=== PATIENT | female | born 1955 | race Hispanic/Latino ===

== ENCOUNTER 2017-04-21 00:27 | Observation (INO) | payer MEDICAID ==
[~2017-04-21] VITALS: Ht 152.4 cm; Wt 77.1 kg
[2017-04-21 01:29] LABS: BASOPHILS % (AUTO) 0.5 % (0.0-5.0); EOSINOPHILS % (AUTO) 2.3 % (0.0-8.0); HEMATOCRIT 31.9 % (36-48); MEAN CORPUSCULAR HEMOGLOBIN 31.4 pg (27.0-33.0); MEAN CORPUSCULAR VOLUME 89.7 fL (79-99); NEUTROPHILS % (AUTO) 60.2 % (40.0-77.0); PLATELET COUNT (AUTO) 223 K/uL (130-400); RED BLOOD CELL COUNT(AUTO) 3.55 MIL/uL (4.00-5.50); RED CELL DISTRIBUTION WIDTH 14.1 % (11.0-15.5); WHITE BLOOD COUNT (AUTO) 8.1 K/uL (4.8-10.8)
[2017-04-21 01:29] LABS: APPEARANCE,URINE Clear (CLEAR); BILIRUBIN,URINE Negative (NEGATIVE); COLOR,URINE Yellow (YELLOW); GLUCOSE, URINE (UA) Negative (NEGATIVE); KETONES,URINE Negative (NEGATIVE); LEUKOCYTE ESTERASE ,URINE Negative (NEGATIVE); NITRATE,URINE Negative (NEGATIVE); OCCULT BLOOD,URINE Negative (NEGATIVE); PH,URINE 5.5 (5.0-8.0); PROTEIN,URINE Negative (NEGATIVE); UROBILINOGEN,URINE 0.2 mg/dL (0.2-1.0)
[2017-04-21 01:30] LABS: CREATININE 1.1 mg/dL (0.5-1.5); POTASSIUM 4.5 mmol/L (3.5-5.1)
[2017-04-21 01:35] LABS: ALBUMIN 3.2 g/dL (3.5-5.0); BILIRUBIN,TOTAL 0.2 mg/dL (0.2-1.0); TOTAL PROTEIN, SERUM 7.3 g/dL (6.0-8.3)
[2017-04-21] MEDS ORDERED: ONDANSETRON HCL 4 MG/2 ML VIAL ONE (02:54)
[2017-04-21] MEDS ORDERED: MEPERIDINE-PF 25 MG/ML SYG ONE (02:56)
[2017-04-21] MEDS ORDERED: SODIUM CHLORIDE 0.9% 1000ML 1,000 ML IV ONE (03:27)
[2017-04-21 04:10] VITALS: BP 146/69
[2017-04-21] MEDS ORDERED: MORPHINE SULFATE 2 MG/ML 1ML SYG IVP PRN (05:00)
[2017-04-21] MEDS ORDERED: SODIUM CHLORIDE 0.9% 1000ML 1,000 ML IV SCH (05:00)
[2017-04-21] MEDS ORDERED: ONDANSETRON HCL 4 MG/2 ML VIAL IVP PRN (05:00)
[2017-04-21] MEDS ORDERED: ESOM40CA PO (05:08)
[2017-04-21] MEDS ORDERED: CALC-866 PO (05:08)
[2017-04-21] MEDS ORDERED: HYOS-14 PO (05:08)
[2017-04-21] MEDS ORDERED: LEVO100T12 PO (05:08)
[2017-04-21] MEDS ORDERED: LORA10TA7 PO (05:08)
[2017-04-21] MEDS ORDERED: OXYB5TAB10 PO (05:08)
[2017-04-21] MEDS ORDERED: ALBU90AE IH (05:08)
[2017-04-21] MEDS ORDERED: SIME80TA29 PO (05:08)
[2017-04-21] MEDS ORDERED: ACET-2247 PO (05:08)
[2017-04-21] MEDS ORDERED: METF500T6 PO (05:08)
[2017-04-21] MEDS ORDERED: AZIT250T PO (05:08)
[2017-04-21] MEDS ORDERED: HUM10VIA6 SQ ×2 (05:08)
[2017-04-21] MEDS ORDERED: PRAV20TA4 PO (05:08)
[2017-04-21] MEDS ORDERED: LINA5TAB PO (05:08)
[2017-04-21] MEDS: SODIUM CHLORIDE 0.9% 1000ML 1,000 ML IV SCH ×2 (06:20→17:11)
[2017-04-21] MEDS ORDERED: POTASSIUM CHLORIDE 10% ELIXIR 20 MEQ/15 ML UDCUP PO PRN (06:30)
[2017-04-21] MEDS ORDERED: POTASSIUM CHLORIDE 20 MEQ ERTAB PO PRN (06:30)
[2017-04-21] MEDS ORDERED: HYDRALAZINE HCL 20 MG/ML VIAL IV PRN (06:30)
[2017-04-21] MEDS ORDERED: LIDOCAINE HCL-MPF 1% 2ML VIAL IVP PRN (06:30)
[2017-04-21] MEDS ORDERED: POTASSIUM CHLORIDE 20MEQ/100ML 100 ML IV PRN (06:30)
[2017-04-21] MEDS ORDERED: ONDANSETRON HCL 4 MG/2 ML VIAL IV PRN (06:30)
[2017-04-21] MEDS: INSULIN HUMULIN R 100 UNIT/ML 3ML SQ SCH ×3 (06:30→18:03)
[2017-04-21 08:00] VITALS: BP 111/68
[2017-04-21] MEDS: FAMOTIDINE/PF 20 MG/2 ML VIAL IV SCH ×2 (08:47→19:42)
[2017-04-21 11:00] VITALS: BP 144/72
[2017-04-21] MEDS ORDERED: HYOSCYAMINE SULFATE 0.125 MG TAB.SUBL SL PRN (11:15)
[2017-04-21] MEDS ORDERED: ALBUTEROL SULFATE 0.083% 2.5 MG/3 ML INH IH PRN (11:15)
[2017-04-21] MEDS ORDERED: SIMETHICONE 80 MG TAB.CHEW PO PRN (11:15)
[2017-04-21] MEDS: METOCLOPRAMIDE 10 MG/2 ML VIAL IVP SCH ×2 (12:08→19:42)
[2017-04-21 16:00] VITALS: BP 102/65
[2017-04-21] MEDS: MEPERIDINE-PF 25 MG/ML SYG IVP PRN (19:42)
[2017-04-21] MEDS: ATORVASTATIN CALCIUM 10 MG TABLET PO SCH (19:48)
[2017-04-21 20:20] VITALS: BP 107/54
[2017-04-21] MEDS ORDERED: INSULIN HUMULIN 70/30 100 UNIT/ML 3ML SQ SCH (21:00)
[2017-04-22] VITALS (8 sets, daily range): BP systolic 118–153; BP diastolic 53–77
[2017-04-22] MEDS: INSULIN HUMULIN R 100 UNIT/ML 3ML SQ SCH ×4 (00:27→18:14)
[2017-04-22] MEDS: LEVOTHYROXINE 100 MCG TABLET PO SCH (06:35)
[2017-04-22] MEDS: SODIUM CHLORIDE 0.9% 1000ML 1,000 ML IV SCH ×3 (06:36→16:53)
[2017-04-22] MEDS: METFORMIN HCL 500 MG TABLET PO SCH (09:00)
[2017-04-22] MEDS: LORATADINE 10 MG TABLET PO SCH (09:00)
[2017-04-22] MEDS: CHOLECALCIFEROL 5000 UNIT PO SCH (09:00)
[2017-04-22] MEDS: FAMOTIDINE/PF 20 MG/2 ML VIAL IV SCH ×2 (09:17→20:44)
[2017-04-22] MEDS: METOCLOPRAMIDE 10 MG/2 ML VIAL IVP SCH ×2 (09:17→20:44)
[2017-04-22] MEDS: OXYBUTYNIN CHLORIDE 5 MG TABLET PO SCH (09:17)
[2017-04-22] MEDS: AZITHROMYCIN 250 MG TABLET PO SCH (09:18)
[2017-04-22] MEDS: MEPERIDINE-PF 25 MG/ML SYG IVP PRN (19:40)
[2017-04-22] MEDS: ATORVASTATIN CALCIUM 10 MG TABLET PO SCH (20:58)
[2017-04-22] MEDS ORDERED: INSULIN HUMULIN 70/30 100 UNIT/ML 3ML SQ SCH (21:00)
[2017-04-23] MEDS: INSULIN HUMULIN R 100 UNIT/ML 3ML SQ SCH ×4 (00:30→16:30)
[2017-04-23] MEDS: SODIUM CHLORIDE 0.9% 1000ML 1,000 ML IV SCH ×2 (02:14→12:02)
[2017-04-23 03:40] VITALS: BP 143/74
[2017-04-23 05:06] LABS: POTASSIUM 4.2 mmol/L (3.5-5.1)
[2017-04-23] MEDS: LEVOTHYROXINE 100 MCG TABLET PO SCH (07:51)
[2017-04-23] MEDS: METFORMIN HCL 500 MG TABLET PO SCH (09:00)
[2017-04-23] MEDS: CHOLECALCIFEROL 5000 UNIT PO SCH (09:00)
[2017-04-23] MEDS: FAMOTIDINE/PF 20 MG/2 ML VIAL IV SCH (09:38)
[2017-04-23] MEDS: OXYBUTYNIN CHLORIDE 5 MG TABLET PO SCH (09:38)
[2017-04-23] MEDS: METOCLOPRAMIDE 10 MG/2 ML VIAL IVP SCH (09:38)
[2017-04-23] MEDS: LORATADINE 10 MG TABLET PO SCH (09:38)
[2017-04-23] MEDS: AZITHROMYCIN 250 MG TABLET PO SCH (09:39)
[2017-04-23 10:36] VITALS: BP 143/77
[2017-04-23 11:56] VITALS: BP 134/65
[2017-04-23 16:05] VITALS: BP 143/77
== END 2017-04-23 18:10 | disposition home or self-care (01) ==
LOC: EDH 00:27 → EDHIP 00:28 → 4BH 04:02 → WSH 04-22 16:53
PROVIDERS: ADMIT Family Medicine; ATTEND Family Medicine
DX: K31.84 Gastroparesis (principal); E11.43 Type 2 diabetes mellitus with diabetic autonomic (poly)neuropathy; I10 Essential (primary) hypertension; E03.9 Hypothyroidism, unspecified; J45.909 Unspecified asthma, uncomplicated; M19.90 Unspecified osteoarthritis, unspecified site; Z87.440 Personal history of urinary (tract) infections; Z82.49 Family history of ischemic heart disease and other diseases of the circulatory system; Z88.1 Allergy status to other antibiotic agents; Z96.652 Presence of left artificial knee joint; Z90.49 Acquired absence of other specified parts of digestive tract
CPT/HCPCS: 36415 ×2; 71045; 74176; 80048; 80053; 81003; 82150; 82948 ×14; 83690; 85025; 87804 ×2; 93005; 94640; 94664; 96361 ×3; 96372 ×2; 96374; 96375; 96376 ×3; 99291; A4510; G0378 ×66; J1815 ×6; J2175 ×3; J2405; J2765 ×5; J3490 ×5; J7030 ×4

== ENCOUNTER → 2018-01-22 | Outpatient (CLI) | payer MEDICAID ==
[~2018-01-22] MED LIST: ACET-2247 PO; ALBU90AE IH; AZIT250T PO; CALC-866 PO; ESOM40CA PO; HUM10VIA6 SQ; HYOS-14 PO; LEVO100T12 PO; LINA5TAB PO; LORA10TA7 PO; METF-444 PO; OXYB5TAB10 PO; PRAV20TA4 PO; SIME80TA29 PO
== END | disposition home or self-care (01) ==
LOC: RAH 10:06
PROVIDERS: ATTEND Internal Medicine Gastroenterology
DX: R14.0 Abdominal distension (gaseous) (principal)
CPT/HCPCS: 78264; A9541

== ENCOUNTER 2018-05-11 13:24 | Emergency (ER) | payer MEDICAID ==
[2018-05-11 13:53] LABS: APPEARANCE,URINE Clear (CLEAR); BILIRUBIN,URINE Negative (NEGATIVE); COLOR,URINE Yellow (YELLOW); GLUCOSE, URINE (UA) >=1000 mg/dL (NEGATIVE); KETONES,URINE Negative (NEGATIVE); LEUKOCYTE ESTERASE ,URINE Negative (NEGATIVE); NITRATE,URINE Negative (NEGATIVE); OCCULT BLOOD,URINE Negative (NEGATIVE); PROTEIN,URINE Negative (NEGATIVE); UROBILINOGEN,URINE 0.2 mg/dL (0.2-1.0)
[2018-05-11 14:01] LABS: BACTERIA,URINE None Seen /HPF (None Seen); RBC,URINE None Seen /HPF (0-1); SQUAMOUS EPITHELIAL CELL,UR Rare /HPF (0-2); WBC,URINE None Seen /HPF (0-1)
[2018-05-11 14:05] LABS: BASOPHILS % (AUTO) 0.9 % (0.0-5.0); EOSINOPHILS % (AUTO) 2.2 % (0.0-8.0); HEMATOCRIT 34.9 % (36-48); LYMPHOCYTES % (AUTO) 30.5 % (21.0-51.0); MEAN CORPUSCULAR HGB CONC 33.4 g/dL (32.0-36.0); MEAN CORPUSCULAR VOLUME 86.8 fL (79-99); NEUTROPHILS % (AUTO) 58.4 % (40.0-77.0); NUCLEATED RED BLOOD CELLS 0.1 % (0.0-0.19); PLATELET COUNT (AUTO) 191 K/uL (130-400); RED BLOOD CELL COUNT(AUTO) 4.02 MIL/uL (4.00-5.50); RED CELL DISTRIBUTION WIDTH 14.3 % (11.0-15.5); WHITE BLOOD COUNT (AUTO) 7.6 K/uL (4.8-10.8)
[2018-05-11 14:06] LABS: ABG OXYGEN SATURATION 67.5 % (95.0-99.0); HCO3,VENOUS BLOOD GAS 25.2 (21.0-28.0); PCO2,VENOUS BLOOD GAS 48 (32-45); PH,VENOUS BLOOD GAS 7.341 (7.350-7.450)
[2018-05-11] MEDS ORDERED: SODIUM CHLORIDE 0.9% 1000ML 1,000 ML IV ONE ×2 (14:10→14:45)
[2018-05-11 14:27] LABS: ALANINE AMINOTRANSFERASE 15 U/L (12-78); ALBUMIN 3.5 g/dL (3.5-5.0); ASPARTATE AMINOTRANSFERASE 16 U/L (10-37); BILIRUBIN,DIRECT < 0.1 mg/dL (0.0-0.3); BILIRUBIN,TOTAL 0.2 mg/dL (0.2-1.0); CARBON DIOXIDE 26 mmol/L (21-32); CHLORIDE 98 mmol/L (101-111); GLOMERULAR FILTR. RATE CALC 60 mL/min (>60); LIPASE 349 U/L (114-286); POTASSIUM 4.4 mmol/L (3.5-5.1); SODIUM SERUM 131 mmol/L (136-145); TOTAL PROTEIN, SERUM 7.3 g/dL (6.0-8.3); UREA NITROGEN, BLOOD 21 mg/dL (7-18)
[2018-05-11 14:29] LABS: GLUCOSE,RANDOM 423 mg/dL (70-105)
[2018-05-11] MEDS ORDERED: INSULIN HUMULIN R 100 UNIT/ML 3ML ONE (14:45)
== END 2018-05-11 15:54 | disposition home or self-care (01) ==
LOC: EDH 13:24
DX: E11.65 Type 2 diabetes mellitus with hyperglycemia (principal); J45.909 Unspecified asthma, uncomplicated; I10 Essential (primary) hypertension; E07.9 Disorder of thyroid, unspecified; Z79.4 Long term (current) use of insulin; Z90.49 Acquired absence of other specified parts of digestive tract; Z88.1 Allergy status to other antibiotic agents; Z88.6 Allergy status to analgesic agent; Z88.8 Allergy status to other drugs, medicaments and biological substances
CPT/HCPCS: 36415; 36600; 80048; 80076; 81001; 82803; 82948 ×2; 83690; 84484; 85025; 93005; 96361; 96374; 99284; J1815; J7030 ×2

== ENCOUNTER 2018-07-29 21:19 | Emergency (ER) | payer MEDICAID ==
[2018-07-29] MEDS ORDERED: DiphenhydrAMINE HCL 50 MG/ML VIAL ONE (21:29)
[2018-07-29] MEDS ORDERED: DEXAMETHASONE SOD PHOSPHATE 10MG/ML 1ML VIAL ONE (21:30)
== END 2018-07-29 22:16 | disposition home or self-care (01) ==
LOC: EDH 21:19
DX: S40.262A Insect bite (nonvenomous) of left shoulder, initial encounter (principal); J45.909 Unspecified asthma, uncomplicated; E11.9 Type 2 diabetes mellitus without complications; I10 Essential (primary) hypertension; E07.9 Disorder of thyroid, unspecified; Z79.4 Long term (current) use of insulin; Z90.49 Acquired absence of other specified parts of digestive tract; Z88.1 Allergy status to other antibiotic agents; Z88.6 Allergy status to analgesic agent; Z88.8 Allergy status to other drugs, medicaments and biological substances; W57.XXXA Bitten or stung by nonvenomous insect and other nonvenomous arthropods, initial encounter; Y93.89 Activity, other specified; Y92.89 Other specified places as the place of occurrence of the external cause; Y99.8 Other external cause status
CPT/HCPCS: 96372 ×2; 99284; J1100; J1200

== ENCOUNTER 2018-10-07 13:21 | Emergency (ER) | payer MEDICAID ==
[2018-10-07] MEDS ORDERED: MECLIZINE HCL 25 MG TABLET ONE (14:16)
[2018-10-07] MEDS ORDERED: ONDANSETRON HCL 4 MG/2 ML VIAL ONE (14:16)
[2018-10-07] MEDS ORDERED: SODIUM CHLORIDE 0.9% 1000ML 1,000 ML IV ONE (14:17)
[2018-10-07 14:23] LABS: BASOPHILS % (AUTO) 0.7 % (0.0-5.0); EOSINOPHILS % (AUTO) 4.3 % (0.0-8.0); HEMATOCRIT 35.8 % (36-48); LYMPHOCYTES % (AUTO) 21.4 % (21.0-51.0); MEAN CORPUSCULAR HEMOGLOBIN 29.7 pg (27.0-33.0); MEAN CORPUSCULAR HGB CONC 33.8 g/dL (32.0-36.0); MEAN CORPUSCULAR VOLUME 87.9 fL (79-99); MONOCYTES % (AUTO) 6.8 % (3.0-13.0); NEUTROPHILS % (AUTO) 66.8 % (40.0-77.0); PLATELET COUNT (AUTO) 261 K/uL (130-400); RED BLOOD CELL COUNT(AUTO) 4.07 MIL/uL (4.00-5.50); RED CELL DISTRIBUTION WIDTH 13.7 % (11.0-15.5); WHITE BLOOD COUNT (AUTO) 8.8 K/uL (4.8-10.8)
[2018-10-07 14:34] LABS: APPEARANCE,URINE CLEAR (CLEAR); BILIRUBIN,URINE NEGATIVE (NEGATIVE); COLOR,URINE YELLOW (YELLOW); GLUCOSE, URINE (UA) NEGATIVE (NEGATIVE); KETONES,URINE NEGATIVE (NEGATIVE); LEUKOCYTE ESTERASE ,URINE TRACE (NEGATIVE); NITRATE,URINE NEGATIVE (NEGATIVE); OCCULT BLOOD,URINE NEGATIVE (NEGATIVE); PH,URINE 5.5 (5.0-8.0); PROTEIN,URINE NEGATIVE (NEGATIVE); UROBILINOGEN,URINE 0.2 mg/dL (0.2-1.0)
[2018-10-07 14:34] LABS: CREATININE 0.9 mg/dL (0.5-1.5)
[2018-10-07 14:39] LABS: INR 0.97 (0.85-1.15); PARTIAL THROMBOPLASTIN TIME 27.2 SEC (26.3-35.5); PROTHROMBIN TIME 10.2 SEC (9.6-11.6)
[2018-10-07 14:39] LABS: BACTERIA,URINE Few /HPF (None Seen); RBC,URINE 0-1 /HPF (0-1)
[2018-10-07 14:40] LABS: SQUAMOUS EPITHELIAL CELL,UR Few /HPF (0-2)
[2018-10-07 14:41] LABS: ALBUMIN 3.4 g/dL (3.5-5.0); BILIRUBIN,TOTAL 0.2 mg/dL (0.2-1.0); TOTAL PROTEIN, SERUM 7.3 g/dL (6.0-8.3)
== END 2018-10-07 16:17 | disposition home or self-care (01) ==
LOC: EDH 13:21
DX: R11.2 Nausea with vomiting, unspecified (principal); R42 Dizziness and giddiness; R53.1 Weakness; J45.909 Unspecified asthma, uncomplicated; M19.90 Unspecified osteoarthritis, unspecified site; I10 Essential (primary) hypertension; E07.9 Disorder of thyroid, unspecified; Z88.1 Allergy status to other antibiotic agents; Z88.6 Allergy status to analgesic agent; Z88.8 Allergy status to other drugs, medicaments and biological substances; E11.9 Type 2 diabetes mellitus without complications
CPT/HCPCS: 36415; 80053; 81001; 82550; 84484; 85025; 85610; 85730; 93005; 96361; 96374; 99285; J2405; J7030

== ENCOUNTER → 2019-09-25 | Outpatient (CLI) | payer MEDICAID ==
[~2019-09-25] MED LIST changes: -ACET-2247 PO; -ALBU90AE IH; -AZIT250T PO; -CALC-866 PO; -ESOM40CA PO; -HUM10VIA6 SQ; -HYOS-14 PO; -LEVO100T12 PO; -LINA5TAB PO; -LORA10TA7 PO; -METF-444 PO; -OXYB5TAB10 PO; -PRAV20TA4 PO; +REGADENOSON 0.4 MG/5 ML PF SYG IVP ONE; +REGADENOSON 0.4 MG/5 ML PF SYG IVP SCH; -SIME80TA29 PO
== END | disposition home or self-care (01) ==
LOC: SHCH 08:32
PROVIDERS: ATTEND Internal Medicine Cardiovascular Disease
DX: I20.9 Angina pectoris, unspecified (principal)
CPT/HCPCS: 78452; 93017; 96374; A9500 ×2; J2785 ×2

== ENCOUNTER 2020-02-25 18:20 | Emergency (ER) | payer OTHER, MEDICARE ==
[~2020-02-25 18:20] MED LIST changes: +ACET-2247 PO; +ALBU90AE IH; +AZIT250T PO; +CALC-866 PO; +ESOM40CA PO; +HUM10VIA6 SQ; +HYOS-14 PO; +LEVO100T12 PO; +LINA5TAB PO; +LORA10TA7 PO; +METF-444 PO; +OXYB5TAB15 PO; +PRAV20TA4 PO; -REGADENOSON 0.4 MG/5 ML PF SYG IVP ONE; -REGADENOSON 0.4 MG/5 ML PF SYG IVP SCH; +SIME80TA78 PO
[2020-02-25] MEDS ORDERED: GLUCAGON 1MG KIT 1 MG ML ONE (18:40)
[2020-02-25] MEDS ORDERED: LIDOCAINE HCL 2% VISCOUS 15 ML UDCUP ONE (18:41)
== END 2020-02-25 21:18 | disposition home or self-care (01) ==
LOC: EDH 18:20
DX: S10.11XA Abrasion of throat, initial encounter (principal); R07.0 Pain in throat; M19.90 Unspecified osteoarthritis, unspecified site; J45.909 Unspecified asthma, uncomplicated; E11.9 Type 2 diabetes mellitus without complications; I10 Essential (primary) hypertension; Z88.1 Allergy status to other antibiotic agents; Z88.6 Allergy status to analgesic agent; Z88.2 Allergy status to sulfonamides; X58.XXXA Exposure to other specified factors, initial encounter; Y93.89 Activity, other specified; Y92.89 Other specified places as the place of occurrence of the external cause; Y99.8 Other external cause status
CPT/HCPCS: 70360; J1610

== ENCOUNTER 2020-04-13 15:38 | Inpatient (IN) | payer OTHER, MEDICARE ==
[~2020-04-13] VITALS: Ht 152.4 cm; Wt 66.5 kg
[2020-04-13] MEDS ORDERED: ALBUTEROL INHALER 90MCG/INH IH ONE (16:59)
[2020-04-13 17:09] LABS: BASOPHILS % (AUTO) 0.4 % (0.0-5.0); EOSINOPHILS % (AUTO) 0.2 % (0.0-8.0); HEMATOCRIT 36.9 % (36-48); LYMPHOCYTES % (AUTO) 42.5 % (21.0-51.0); MEAN CORPUSCULAR HEMOGLOBIN 29.8 pg (27.0-33.0); MEAN CORPUSCULAR HGB CONC 33.9 g/dL (32.0-36.0); MEAN CORPUSCULAR VOLUME 88.1 fL (79-99); MONOCYTES % (AUTO) 8.3 % (3.0-13.0); NEUTROPHILS % (AUTO) 48.6 % (40.0-77.0); PLATELET COUNT (AUTO) 198 K/uL (130-400); RED BLOOD CELL COUNT(AUTO) 4.19 MIL/uL (4.00-5.50); RED CELL DISTRIBUTION WIDTH 12.2 % (11.0-15.5); WHITE BLOOD COUNT (AUTO) 4.7 K/uL (4.8-10.8)
[2020-04-13 17:20] LABS: CREATININE 1.2 mg/dL (0.5-1.5); POTASSIUM 4.2 mmol/L (3.5-5.1)
[2020-04-13 17:25] LABS: ALBUMIN 3.4 g/dL (3.5-5.0); BILIRUBIN,TOTAL 0.3 mg/dL (0.2-1.0); TOTAL PROTEIN, SERUM 7.2 g/dL (6.0-8.3)
[2020-04-13] MEDS ORDERED: IVERMECTIN 3 MG TAB PO ONE (18:00)
[2020-04-13] MEDS ORDERED: AZITHROMYCIN 500MG+NS 250ML 250 ML IV ONE (19:18)
[2020-04-13] MEDS ORDERED: DEXAMETHASONE SOD PHOSPHATE 10MG/ML 1ML VIAL ONE (19:18)
[2020-04-13] MEDS ORDERED: FAMOTIDINE 20MG VIAL IV ONE (19:18)
[2020-04-13 19:25] LABS: INR 1.02 (0.85-1.15); PROTHROMBIN TIME 10.9 SEC (9.6-11.6)
[2020-04-13 19:26] LABS: PARTIAL THROMBOPLASTIN TIME 29.5 SEC (26.3-35.5)
[2020-04-13] MEDS ORDERED: ACETAMINOPHEN 500 MG TABLET ONE (20:22)
[2020-04-13 22:09] LABS: ABG BASE EXCESS -3.2 mmol/L (-2.0-3.0); ABG HCO3 20.3 mmol/L (21.0-28.0); ABG OXYGEN SATURATION 94.6 % (95.0-99.0); ABG PCO2 32 mmHg (32-45)
[2020-04-13] MEDS ORDERED: IOHEXOL 350 MG/ML 100ML INFUS..BTL IV ONE (23:06)
[2020-04-14] MEDS ORDERED: SOLU-MEDROL 40MG VIAL ONE ×3 (00:26→21:05)
[2020-04-14] MEDS ORDERED: AZITHROMYCIN 500MG+NS 250ML 250 ML IV ONE ×2 (00:27→21:05)
[2020-04-14] MEDS ORDERED: ENOXAPARIN SODIUM 40 MG/0.4 ML SYRINGE SQ ONE (00:27)
[2020-04-14] MEDS ORDERED: CEFTRIAXONE 1G VIAL ONE (00:28)
[2020-04-14] MEDS ORDERED: GLUCAGON 1MG KIT 1 MG ML IM PRN (02:30)
[2020-04-14] MEDS ORDERED: INSULIN IV SS2 IV PRN ×2 (02:30)
[2020-04-14] MEDS ORDERED: DEXTROSE 50%-WATER 50 ML DISP.SYRIN IV PRN (02:30)
[2020-04-14] MEDS ORDERED: INSULIN HUMULIN R 100 UNIT/ML 3ML ONE ×4 (07:10→22:24)
[2020-04-14] MEDS: ASPIRIN 81MG CHEW TAB PO SCH (09:00)
[2020-04-14] MEDS ORDERED: ONDANSETRON 4MG INJ IVP PRN (09:00)
[2020-04-14] MEDS: SOLU-MEDROL 40MG VIAL IVP SCH (09:00)
[2020-04-14] MEDS: FAMOTIDINE 20MG TAB PO SCH (09:00)
[2020-04-14] MEDS ORDERED: TEMAZEPAM 15 MG CAPSULE PO PRN (09:00)
[2020-04-14] MEDS ORDERED: ENOXAPARIN SODIUM 40 MG/0.4 ML SYRINGE SQ SCH (09:00)
[2020-04-14] MEDS ORDERED: ALBUTEROL INHALER 90MCG/INH IH PRN (09:00)
[2020-04-14] MEDS ORDERED: CLONIDINE HCL 0.1 MG TABLET PO PRN (09:00)
[2020-04-14] MEDS: ASCORBIC ACID 500 MG TAB PO SCH (09:00)
[2020-04-14] MEDS ORDERED: DOCUSATE SODIUM 100 MG CAP PO PRN (09:00)
[2020-04-14 10:04] LABS: APPEARANCE,URINE Clear (CLEAR); BILIRUBIN,URINE Negative (NEGATIVE); COLOR,URINE Yellow (YELLOW); GLUCOSE, URINE (UA) >=1000 mg/dL (NEGATIVE); KETONES,URINE 15 mg/dL (NEGATIVE); LEUKOCYTE ESTERASE ,URINE Negative (NEGATIVE); NITRATE,URINE Negative (NEGATIVE); OCCULT BLOOD,URINE Negative (NEGATIVE); PH,URINE 5.5 (5.0-8.0); PROTEIN,URINE Negative (NEGATIVE); UROBILINOGEN,URINE 0.2 mg/dL (0.2-1.0)
[2020-04-14 10:17] LABS: BACTERIA,URINE Rare /HPF (None Seen); RBC,URINE 0-1 /HPF (0-1); SQUAMOUS EPITHELIAL CELL,UR Rare /HPF (0-2); WBC,URINE 0-1 /HPF (0-1)
[2020-04-14] MEDS ORDERED: ASPIRIN 81MG CHEW TAB ONE (10:27)
[2020-04-14] MEDS ORDERED: ASCORBIC ACID 500 MG TAB ONE (10:27)
[2020-04-14] MEDS ORDERED: FAMOTIDINE 20MG TAB ONE ×2 (10:28→21:05)
[2020-04-14] MEDS: INSULIN HUMULIN R 100 UNIT/ML 3ML SQ SCH (11:30)
[2020-04-14] MEDS ORDERED: ACETAMINOPHEN 325 MG TAB ONE ×2 (11:38→21:06)
[2020-04-14] MEDS ORDERED: ACETAMINOPHEN 650 MG SUPPOSITORY RC PRN (11:45)
[2020-04-14] MEDS ORDERED: CEFTRIAXONE 1G VIAL IVP SCH (12:00)
[2020-04-14] MEDS: 0.9%NACL 1000ML 1,000 ML IV SCH (15:45)
[2020-04-14] MEDS: ENOXAPARIN SODIUM 80 MG/0.8 ML SQ SCH (21:00)
[2020-04-14] MEDS: AZITHROMYCIN 500MG+NS 250ML 250 ML IV SCH (21:00)
[2020-04-14] MEDS: INSULIN GLARGINE 100 UNITS/ML 10 ML VIAL SQ SCH (21:00)
[2020-04-14] MEDS ORDERED: TEMAZEPAM 15 MG CAPSULE ONE (21:20)
[2020-04-15 05:22] LABS: HEMATOCRIT 34.6 % (36-48); MEAN CORPUSCULAR HEMOGLOBIN 28.9 pg (27.0-33.0); MEAN CORPUSCULAR HGB CONC 32.9 g/dL (32.0-36.0); MEAN CORPUSCULAR VOLUME 87.6 fL (79-99); MONOCYTES % (AUTO) 5.1 % (3.0-13.0); NEUTROPHILS % (AUTO) 76.5 % (40.0-77.0); PLATELET COUNT (AUTO) 244 K/uL (130-400); RED BLOOD CELL COUNT(AUTO) 3.95 MIL/uL (4.00-5.50); RED CELL DISTRIBUTION WIDTH 12.1 % (11.0-15.5); WHITE BLOOD COUNT (AUTO) 8.1 K/uL (4.8-10.8)
[2020-04-15 05:27] LABS: CREATININE 0.9 mg/dL (0.5-1.5); CRP QUANTITATIVE 15.8 mg/L (0.00-9.0); POTASSIUM 4.2 mmol/L (3.5-5.1)
[2020-04-15] MEDS ORDERED: ASPIRIN 81MG CHEW TAB ONE (07:51)
[2020-04-15] MEDS ORDERED: ENOXAPARIN SODIUM 80 MG/0.8 ML SQ ONE ×2 (07:51→22:50)
[2020-04-15] MEDS ORDERED: SOLU-MEDROL 40MG VIAL ONE ×2 (07:51→22:50)
[2020-04-15] MEDS ORDERED: ASCORBIC ACID 500 MG TAB ONE (07:52)
[2020-04-15] MEDS ORDERED: FAMOTIDINE 20MG TAB ONE (07:52)
[2020-04-15] MEDS ORDERED: INSULIN HUMULIN R 100 UNIT/ML 3ML ONE ×3 (07:53→22:52)
[2020-04-15] MEDS ORDERED: ALBUTEROL INHALER 90MCG/INH IH ONE (12:12)
[2020-04-15] MEDS ORDERED: ACETAMINOPHEN 325 MG TAB ONE (17:07)
[2020-04-15] MEDS: AZITHROMYCIN 500MG+NS 250ML 250 ML IV SCH (21:00)
[2020-04-15] MEDS ORDERED: AZITHROMYCIN 500MG+NS 250ML 250 ML IV ONE (22:51)
[2020-04-16 05:17] LABS: BASOPHILS % (AUTO) 0.1 % (0.0-5.0); LYMPHOCYTES % (AUTO) 8.1 % (21.0-51.0); MEAN CORPUSCULAR HEMOGLOBIN 29.5 pg (27.0-33.0); MEAN CORPUSCULAR HGB CONC 33.7 g/dL (32.0-36.0); MEAN CORPUSCULAR VOLUME 87.5 fL (79-99); MONOCYTES % (AUTO) 3.8 % (3.0-13.0); NEUTROPHILS % (AUTO) 87.6 % (40.0-77.0); PLATELET COUNT (AUTO) 274 K/uL (130-400); RED CELL DISTRIBUTION WIDTH 12.1 % (11.0-15.5); WHITE BLOOD COUNT (AUTO) 13.8 K/uL (4.8-10.8)
[2020-04-16 06:04] LABS: MAGNESIUM 1.7 mg/dL (1.80-2.40); POTASSIUM 3.6 mmol/L (3.5-5.1)
[2020-04-16] MEDS: INSULIN GLARGINE 100 UNITS/ML 10 ML VIAL SQ SCH ×2 (07:30→21:40)
[2020-04-16] MEDS ORDERED: DEXT118L43 PO (07:42)
[2020-04-16] MEDS ORDERED: MONT-39 PO (07:42)
[2020-04-16] MEDS ORDERED: SUCR1TAB2 PO (07:42)
[2020-04-16] MEDS ORDERED: FAMO20TA8 PO (07:42)
[2020-04-16] MEDS ORDERED: MEMA10TA55 PO (07:42)
[2020-04-16] MEDS: 0.9%NACL 1000ML 1,000 ML IV SCH ×2 (07:45→21:25)
[2020-04-16] MEDS ORDERED: ENOXAPARIN SODIUM 80 MG/0.8 ML SQ ONE (09:00)
[2020-04-16] MEDS: FAMOTIDINE 20MG TAB PO SCH (09:00)
[2020-04-16] MEDS: ASPIRIN 81MG CHEW TAB PO SCH (09:00)
[2020-04-16] MEDS: ASCORBIC ACID 500 MG TAB PO SCH (09:00)
[2020-04-16] MEDS: ENOXAPARIN SODIUM 80 MG/0.8 ML SQ SCH ×2 (09:00→20:36)
[2020-04-16] MEDS: SOLU-MEDROL 40MG VIAL IVP SCH ×2 (09:00→20:35)
[2020-04-16] MEDS ORDERED: ASPIRIN 81MG CHEW TAB ONE (09:00)
[2020-04-16] MEDS ORDERED: SOLU-MEDROL 40MG VIAL ONE (09:00)
[2020-04-16] MEDS ORDERED: ASCORBIC ACID 500 MG TAB ONE (09:01)
[2020-04-16] MEDS ORDERED: FAMOTIDINE 20MG TAB ONE (09:01)
[2020-04-16] MEDS ORDERED: INSULIN HUMULIN R 100 UNIT/ML 3ML ONE ×2 (09:02→16:08)
[2020-04-16] MEDS ORDERED: 0.9%NACL 1000ML 1,000 ML IV ONE (09:10)
[2020-04-16] MEDS ORDERED: GUAIFENESIN-DM 200/20 MG 10 ML PO PRN (12:15)
[2020-04-16] MEDS ORDERED: BENZ-39 PO (12:33)
[2020-04-16] MEDS ORDERED: DEXA6TAB7 PO (12:33)
[2020-04-16] MEDS ORDERED: BUDE10.2 IH (12:33)
[2020-04-16] MEDS ORDERED: ASCO500C6 PO (12:33)
[2020-04-16] MEDS ORDERED: ZINC50TA15 PO (12:33)
[2020-04-16] MEDS ORDERED: ALBU8.5H8 IH (12:33)
[2020-04-16] MEDS ORDERED: BENZONATATE 100 MG CAPSULE PO ONE (12:41)
[2020-04-16] MEDS ORDERED: MAGNESIUM 2GM PREMIX 50ML 50 ML IV ONE (13:48)
[2020-04-16] MEDS: INSULIN HUMULIN R 100 UNIT/ML 3ML SQ SCH ×2 (16:30→21:42)
[2020-04-16 18:00] VITALS: BP 171/86
[2020-04-16] MEDS: AZITHROMYCIN 500MG+NS 250ML 250 ML IV SCH (20:36)
[2020-04-16 21:00] VITALS: BP 140/66
[2020-04-16 23:50] VITALS: BP 172/76
[2020-04-17 04:08] VITALS: BP 152/65
[2020-04-17] MEDS: INSULIN GLARGINE 100 UNITS/ML 10 ML VIAL SQ SCH ×2 (06:41→20:29)
[2020-04-17] MEDS: INSULIN HUMULIN R 100 UNIT/ML 3ML SQ SCH ×4 (06:44→20:28)
[2020-04-17] MEDS: ASCORBIC ACID 500 MG TAB PO SCH (08:47)
[2020-04-17] MEDS: ACETAMINOPHEN 325 MG TAB PO PRN (08:47)
[2020-04-17] MEDS: ASPIRIN 81MG CHEW TAB PO SCH (08:48)
[2020-04-17] MEDS: FAMOTIDINE 20MG TAB PO SCH (08:48)
[2020-04-17] MEDS: SOLU-MEDROL 40MG VIAL IVP SCH ×2 (08:49→19:27)
[2020-04-17] MEDS: ENOXAPARIN SODIUM 80 MG/0.8 ML SQ SCH ×2 (08:49→19:27)
[2020-04-17 10:16] VITALS: BP_SYST 107; BP_SYST 133; BP_DIAS 61; BP_DIAS 62
[2020-04-17] MEDS: 0.9%NACL 1000ML 1,000 ML IV SCH (10:35)
[2020-04-17 13:05] VITALS: BP 113/67
[2020-04-17 18:16] VITALS: BP 169/85
[2020-04-17] MEDS: MAGNESIUM 2GM PREMIX 50ML 50 ML IV SCH (19:28)
[2020-04-17] MEDS: AZITHROMYCIN 500MG+NS 250ML 250 ML IV SCH (19:28)
[2020-04-17 19:40] VITALS: BP 162/80
[2020-04-17] MEDS: BENZONATATE 100 MG CAPSULE PO PRN (19:52)
[2020-04-17 23:37] VITALS: BP 159/70
[2020-04-18 04:04] VITALS: BP 135/67
[2020-04-18] MEDS: INSULIN HUMULIN R 100 UNIT/ML 3ML SQ SCH ×4 (05:46→21:00)
[2020-04-18 06:30] LABS: HEMATOCRIT 33.3 % (36-48); MEAN CORPUSCULAR HEMOGLOBIN 29.3 pg (27.0-33.0); MEAN CORPUSCULAR HGB CONC 33.9 g/dL (32.0-36.0); MEAN CORPUSCULAR VOLUME 86.3 fL (79-99); RED BLOOD CELL COUNT(AUTO) 3.86 MIL/uL (4.00-5.50); RED CELL DISTRIBUTION WIDTH 11.9 % (11.0-15.5); WHITE BLOOD COUNT (AUTO) 11.8 K/uL (4.8-10.8)
[2020-04-18 06:39] LABS: CREATININE 0.8 mg/dL (0.5-1.5); MAGNESIUM 2.2 mg/dL (1.80-2.40); POTASSIUM 3.5 mmol/L (3.5-5.1)
[2020-04-18] MEDS: INSULIN GLARGINE 100 UNITS/ML 10 ML VIAL SQ SCH ×2 (06:53→21:54)
[2020-04-18 07:28] VITALS: BP 130/68
[2020-04-18] MEDS: SOLU-MEDROL 40MG VIAL IVP SCH (07:45)
[2020-04-18] MEDS: ASCORBIC ACID 500 MG TAB PO SCH (07:45)
[2020-04-18] MEDS: ASPIRIN 81MG CHEW TAB PO SCH (07:45)
[2020-04-18] MEDS: FAMOTIDINE 20MG TAB PO SCH (07:45)
[2020-04-18] MEDS: ENOXAPARIN SODIUM 80 MG/0.8 ML SQ SCH ×2 (07:46→21:57)
[2020-04-18] MEDS: BENZONATATE 100 MG CAPSULE PO PRN (10:22)
[2020-04-18 10:48] VITALS: BP 138/71
[2020-04-18 15:39] VITALS: BP 140/73
[2020-04-18 20:00] VITALS: BP 172/86
[2020-04-18] MEDS: AZITHROMYCIN 500MG+NS 250ML 250 ML IV SCH (21:51)
[2020-04-18] MEDS: ACETAMINOPHEN 325 MG TAB PO PRN (21:52)
[2020-04-19] VITALS (7 sets, daily range): BP systolic 108–135; BP diastolic 53–69
[2020-04-19] MEDS: BENZONATATE 100 MG CAPSULE PO PRN (06:27)
[2020-04-19] MEDS: INSULIN GLARGINE 100 UNITS/ML 10 ML VIAL SQ SCH ×2 (06:36→21:26)
[2020-04-19] MEDS: INSULIN HUMULIN R 100 UNIT/ML 3ML SQ SCH ×4 (06:36→21:24)
[2020-04-19] MEDS: ASCORBIC ACID 500 MG TAB PO SCH (08:44)
[2020-04-19] MEDS: FAMOTIDINE 20MG TAB PO SCH (08:44)
[2020-04-19] MEDS: ASPIRIN 81MG CHEW TAB PO SCH (08:44)
[2020-04-19] MEDS: SOLU-MEDROL 40MG VIAL IVP SCH (08:44)
[2020-04-19] MEDS: ENOXAPARIN SODIUM 80 MG/0.8 ML SQ SCH ×2 (08:45→21:28)
[2020-04-19] MEDS: ACETAMINOPHEN 325 MG TAB PO PRN ×2 (08:59→23:15)
[2020-04-19 11:58] LABS: ABG BASE EXCESS 2.4 mmol/L (-2.0-3.0); ABG OXYGEN SATURATION 90.9 % (95.0-99.0); ABG PCO2 33 mmHg (32-45)
[2020-04-19] MEDS: AZITHROMYCIN 500MG+NS 250ML 250 ML IV SCH (21:22)
[2020-04-20 03:32] VITALS: BP 125/59
[2020-04-20] MEDS: INSULIN HUMULIN R 100 UNIT/ML 3ML SQ SCH ×4 (06:31→21:29)
[2020-04-20] MEDS: INSULIN GLARGINE 100 UNITS/ML 10 ML VIAL SQ SCH ×2 (06:32→21:25)
[2020-04-20 08:00] VITALS: BP 128/58
[2020-04-20 08:57] LABS: HEMATOCRIT 37.1 % (36-48); MEAN CORPUSCULAR HEMOGLOBIN 29.1 pg (27.0-33.0); MEAN CORPUSCULAR HGB CONC 33.4 g/dL (32.0-36.0); MEAN CORPUSCULAR VOLUME 87.1 fL (79-99); RED BLOOD CELL COUNT(AUTO) 4.26 MIL/uL (4.00-5.50); RED CELL DISTRIBUTION WIDTH 12.2 % (11.0-15.5); WHITE BLOOD COUNT (AUTO) 12.4 K/uL (4.8-10.8)
[2020-04-20 09:13] LABS: INR 1.03 (0.85-1.15)
[2020-04-20 09:20] LABS: ALBUMIN 2.6 g/dL (3.5-5.0); BILIRUBIN,TOTAL 0.4 mg/dL (0.2-1.0); MAGNESIUM 1.7 mg/dL (1.80-2.40); PHOSPHORUS 2.9 mg/dL (2.5-4.9); POTASSIUM 3.5 mmol/L (3.5-5.1); TOTAL PROTEIN, SERUM 6.9 g/dL (6.0-8.3)
[2020-04-20] MEDS: FAMOTIDINE 20MG TAB PO SCH (10:39)
[2020-04-20] MEDS: SOLU-MEDROL 40MG VIAL IVP SCH (10:39)
[2020-04-20] MEDS: ASCORBIC ACID 500 MG TAB PO SCH (10:39)
[2020-04-20] MEDS: ASPIRIN 81MG CHEW TAB PO SCH (10:39)
[2020-04-20] MEDS: ENOXAPARIN SODIUM 80 MG/0.8 ML SQ SCH (10:41)
[2020-04-20 12:00] VITALS: BP 138/68
[2020-04-20] MEDS: MAGNESIUM 2GM PREMIX 50ML 50 ML IV SCH (14:05)
[2020-04-20] MEDS: ACETAMINOPHEN 325 MG TAB PO PRN (15:29)
[2020-04-20] MEDS: FUROSEMIDE 20MG VIAL IV SCH (15:32)
[2020-04-20 16:00] VITALS: BP 144/69
[2020-04-20] MEDS ORDERED: PHARMACY COMMUNICATION MISC SCH (18:15)
[2020-04-20] MEDS ORDERED: COMPOUND PO MISCELLANEOUS 1 EACH MISC MISC PRN (18:30)
[2020-04-20] MEDS: MAG/ALUM/SIMETH 30ML 60 ML, LIDOCAINE HCL 2% VISCOUS 60 ML, DIPHENHYDRAMINE HCL 150 MG PO PRN ×3 (19:05)
[2020-04-20] MEDS: AZITHROMYCIN 500MG+NS 250ML 250 ML IV SCH (21:20)
[2020-04-20] MEDS: ENOXAPARIN SODIUM 30 MG/0.3 ML SQ SCH (21:21)
[2020-04-20 21:43] VITALS: BP 109/59
[2020-04-20] MEDS: BENZONATATE 100 MG CAPSULE PO PRN (22:28)
[2020-04-21 00:04] VITALS: BP 125/65
[2020-04-21] MEDS: FUROSEMIDE 20MG VIAL IV SCH (03:04)
[2020-04-21 03:47] VITALS: BP 128/58
[2020-04-21 05:05] LABS: BASOPHILS % (AUTO) 0.2 % (0.0-5.0); EOSINOPHILS % (AUTO) 0.1 % (0.0-8.0); HEMATOCRIT 34.1 % (36-48); LYMPHOCYTES % (AUTO) 11.4 % (21.0-51.0); MEAN CORPUSCULAR HEMOGLOBIN 29.5 pg (27.0-33.0); MEAN CORPUSCULAR HGB CONC 33.7 g/dL (32.0-36.0); MEAN CORPUSCULAR VOLUME 87.4 fL (79-99); MONOCYTES % (AUTO) 7.8 % (3.0-13.0); NEUTROPHILS % (AUTO) 76.6 % (40.0-77.0); PLATELET COUNT (AUTO) 489 K/uL (130-400); RED CELL DISTRIBUTION WIDTH 12.1 % (11.0-15.5); WHITE BLOOD COUNT (AUTO) 10.7 K/uL (4.8-10.8)
[2020-04-21 05:22] LABS: B-TYPE NATRIURETIC PEPTIDE 25 pg/mL (0-100)
[2020-04-21 05:24] LABS: ALBUMIN 2.5 g/dL (3.5-5.0); BILIRUBIN,TOTAL 0.3 mg/dL (0.2-1.0); CREATININE 1.1 mg/dL (0.5-1.5); MAGNESIUM 3.1 mg/dL (1.80-2.40); PHOSPHORUS 3.7 mg/dL (2.5-4.9); POTASSIUM 3.8 mmol/L (3.5-5.1); TOTAL PROTEIN, SERUM 7.1 g/dL (6.0-8.3)
[2020-04-21] MEDS: INSULIN HUMULIN R 100 UNIT/ML 3ML SQ SCH ×2 (06:27→11:31)
[2020-04-21] MEDS: INSULIN GLARGINE 100 UNITS/ML 10 ML VIAL SQ SCH (06:28)
[2020-04-21] MEDS: MAG/ALUM/SIMETH 30ML 60 ML, LIDOCAINE HCL 2% VISCOUS 60 ML, DIPHENHYDRAMINE HCL 150 MG PO PRN ×3 (06:49)
[2020-04-21] MEDS: ACETAMINOPHEN 325 MG TAB PO PRN (06:50)
[2020-04-21] MEDS: SOLU-MEDROL 40MG VIAL IVP SCH (09:41)
[2020-04-21] MEDS: ASCORBIC ACID 500 MG TAB PO SCH (09:41)
[2020-04-21] MEDS: ASPIRIN 81MG CHEW TAB PO SCH (09:42)
[2020-04-21] MEDS: FAMOTIDINE 20MG TAB PO SCH (09:42)
[2020-04-21] MEDS: ENOXAPARIN SODIUM 30 MG/0.3 ML SQ SCH (09:43)
[2020-04-21 09:48] VITALS: BP 131/61
== END 2020-04-21 14:00 | DRG 177 ==
LOC: EDH 15:38 → OBSVTOIN 23:51 → EDHIP 23:51 → 4AH 04-16 16:57
PROVIDERS: ADMIT Internal Medicine; ATTEND Internal Medicine
DX: U07.1 COVID-19 (principal); J96.01 Acute respiratory failure with hypoxia; J12.9 Viral pneumonia, unspecified; I10 Essential (primary) hypertension; E03.9 Hypothyroidism, unspecified; I35.1 Nonrheumatic aortic (valve) insufficiency; J45.909 Unspecified asthma, uncomplicated; K21.9 Gastro-esophageal reflux disease without esophagitis; E11.9 Type 2 diabetes mellitus without complications; Z79.4 Long term (current) use of insulin; Z79.51 Long term (current) use of inhaled steroids; Z83.3 Family history of diabetes mellitus; Z82.49 Family history of ischemic heart disease and other diseases of the circulatory system; Z88.1 Allergy status to other antibiotic agents; Z88.5 Allergy status to narcotic agent; Z79.899 Other long term (current) drug therapy
CPT/HCPCS: 36415; 36600; 70450; 71045; 71275; 80048; 80053; 81001; 82550; 82728; 82803; 82948; 83605; 83615; 83735; 83880; 84100; 84145; 84484; 85025; 85027; 85378; 85610; 85651; 85730; 86140; 87040; 87088; 87426; 93005; 93306; 93356; 94760; G0378; J0456; J0696; J1100; J1650; J1815; J1940; J2920; J3475; J3490; J7030; Q9967

== ENCOUNTER → 2020-09-27 | Outpatient (CLI) | payer OTHER, MEDICARE ==
[~2020-09-27] MED LIST changes: +ALBU8.5H8 IH; +ASCO500C6 PO; +BENZ-39 PO; +BUDE10.2 IH; +DEXA6TAB7 PO; +DEXT118L43 PO; +FAMO20TA8 PO; +MEMA10TA55 PO; +MONT10TA32 PO; +SUCR1TAB2 PO; +ZINC50TA15 PO
== END | disposition home or self-care (01) ==
LOC: RAH 09:54
PROVIDERS: ATTEND Internal Medicine Gastroenterology
DX: R13.12 Dysphagia, oropharyngeal phase (principal); R63.3 Feeding difficulties
CPT/HCPCS: 74230; 92611

== ENCOUNTER 2021-01-02 21:36 | Emergency (ER) | payer OTHER, MEDICARE ==
[~2021-01-02] VITALS: Ht 152.4 cm; Wt 68.9 kg
[2021-01-02 21:50] VITALS: BP 149/58
[2021-01-02 22:54] VITALS: BP 155/69
[2021-01-02 22:55] LABS: BASOPHILS % (AUTO) 0.5 % (0.0-5.0); HEMATOCRIT 32.2 % (36-48); LYMPHOCYTES % (AUTO) 37.3 % (21.0-51.0); MEAN CORPUSCULAR HEMOGLOBIN 29.2 pg (27.0-33.0); MEAN CORPUSCULAR HGB CONC 33.2 g/dL (32.0-36.0); MONOCYTES % (AUTO) 9.3 % (3.0-13.0); NEUTROPHILS % (AUTO) 45.7 % (40.0-77.0); PLATELET COUNT (AUTO) 258 K/uL (130-400); RED BLOOD CELL COUNT(AUTO) 3.66 MIL/uL (4.00-5.50); RED CELL DISTRIBUTION WIDTH 12.6 % (11.0-15.5); WHITE BLOOD COUNT (AUTO) 8.7 K/uL (4.8-10.8)
[2021-01-02 23:06] LABS: CREATININE 1.2 mg/dL (0.5-1.5); POTASSIUM 4.1 mmol/L (3.5-5.1)
[2021-01-02 23:12] LABS: ALBUMIN 3.3 g/dL (3.5-5.0); BILIRUBIN,TOTAL 0.2 mg/dL (0.2-1.0); TOTAL PROTEIN, SERUM 7.1 g/dL (6.0-8.3)
[2021-01-03] MEDS ORDERED: DEXAMETHASONE SOD PHOSPHATE 4 MG/ML 1ML VIAL ONE (00:30)
[2021-01-03] MEDS ORDERED: DEXAMETHASONE SOD PHOSPHATE 4 MG/ML 1ML VIAL IVP SCH (00:30)
[2021-01-03 00:36] VITALS: BP 133/48
[2021-01-03] MEDS ORDERED: FAMC500T8 PO (01:17)
[2021-01-03] MEDS ORDERED: PRED20TA3 PO (01:17)
[2021-01-03] MEDS ORDERED: LANO3.5O OP (01:17)
[2021-01-03 01:25] VITALS: BP 143/58
== END 2021-01-03 01:39 | disposition home or self-care (01) ==
LOC: EDH 21:36
DX: G51.0 Bell's palsy (principal); D64.9 Anemia, unspecified; E11.65 Type 2 diabetes mellitus with hyperglycemia; G89.29 Other chronic pain; M25.512 Pain in left shoulder; E78.00 Pure hypercholesterolemia, unspecified; E03.9 Hypothyroidism, unspecified; M19.90 Unspecified osteoarthritis, unspecified site; Z79.4 Long term (current) use of insulin; Z79.51 Long term (current) use of inhaled steroids; Z79.52 Long term (current) use of systemic steroids; Z79.899 Other long term (current) drug therapy; Z88.1 Allergy status to other antibiotic agents; Z88.2 Allergy status to sulfonamides; Z88.5 Allergy status to narcotic agent
CPT/HCPCS: 36415; 70450; 80053; 85025; 96374; 99285; J1100

== ENCOUNTER 2021-10-15 23:17 | Emergency (ER) | payer OTHER, MEDICARE ==
[~2021-10-15] VITALS: Ht 152.4 cm; Wt 74.4 kg
[~2021-10-15 23:17] MED LIST changes: +FAMC500T8 PO; +LANO3.5O OP; +MONT-39 PO; -MONT10TA32 PO; +PRED20TA3 PO
[2021-10-16 00:30] LABS: BASOPHILS % (AUTO) 0.5 % (0.0-5.0); HEMATOCRIT 33.9 % (36-48); LYMPHOCYTES % (AUTO) 21.5 % (21.0-51.0); MEAN CORPUSCULAR HEMOGLOBIN 29.4 pg (27.0-33.0); NEUTROPHILS % (AUTO) 68.8 % (40.0-77.0); PLATELET COUNT (AUTO) 241 K/uL (130-400); RED BLOOD CELL COUNT(AUTO) 3.81 MIL/uL (4.00-5.50); RED CELL DISTRIBUTION WIDTH 12.4 % (11.0-15.5); WHITE BLOOD COUNT (AUTO) 8.8 K/uL (4.8-10.8)
[2021-10-16 00:40] LABS: CREATININE 1.4 mg/dL (0.5-1.5); POTASSIUM 4.3 mmol/L (3.5-5.1)
[2021-10-16 00:43] LABS: APPEARANCE,URINE CLEAR (CLEAR); BILIRUBIN,URINE NEGATIVE (NEGATIVE); COLOR,URINE YELLOW (YELLOW); GLUCOSE, URINE (UA) NEGATIVE (NEGATIVE); KETONES,URINE NEGATIVE (NEGATIVE); LEUKOCYTE ESTERASE ,URINE TRACE (NEGATIVE); NITRATE,URINE NEGATIVE (NEGATIVE); OCCULT BLOOD,URINE NEGATIVE (NEGATIVE); PROTEIN,URINE NEGATIVE (NEGATIVE); UROBILINOGEN,URINE 0.2 mg/dL (0.2-1.0)
[2021-10-16 00:47] LABS: ALBUMIN 3.7 g/dL (3.5-5.0); BILIRUBIN,TOTAL 0.2 mg/dL (0.2-1.0); TOTAL PROTEIN, SERUM 7.5 g/dL (6.0-8.3)
[2021-10-16 00:50] LABS: BACTERIA,URINE None Seen /HPF (None Seen); HYALINE CASTS, URINE 0-1 /LPF (0-1 /LPF); RBC,URINE 0-1 /HPF (0-1); SQUAMOUS EPITHELIAL CELL,UR Few /HPF (0-2)
[2021-10-16 02:26] VITALS: BP 143/64
== END 2021-10-16 03:14 | disposition home or self-care (01) ==
LOC: EDH 23:17
DX: D64.9 Anemia, unspecified (principal); R51.9 Headache, unspecified; R00.2 Palpitations; E11.9 Type 2 diabetes mellitus without complications; F41.9 Anxiety disorder, unspecified; I10 Essential (primary) hypertension; Z79.4 Long term (current) use of insulin; Z79.51 Long term (current) use of inhaled steroids; Z79.52 Long term (current) use of systemic steroids; Z79.899 Other long term (current) drug therapy; Z88.1 Allergy status to other antibiotic agents; Z88.2 Allergy status to sulfonamides; Z88.5 Allergy status to narcotic agent; Z90.49 Acquired absence of other specified parts of digestive tract
CPT/HCPCS: 36415; 71045; 80053; 81001; 82550; 84484; 85025; 87088; 93005

== ENCOUNTER 2021-12-11 17:14 | Emergency (ER) | payer OTHER, MEDICARE ==
[~2021-12-11] VITALS: Ht 152.4 cm; Wt 72.1 kg
[2021-12-11 18:14] LABS: BASOPHILS % (AUTO) 0.3 % (0.0-5.0); EOSINOPHILS % (AUTO) 2.6 % (0.0-8.0); HEMATOCRIT 32.9 % (36-48); LYMPHOCYTES % (AUTO) 31.8 % (21.0-51.0); MEAN CORPUSCULAR HEMOGLOBIN 29.4 pg (27.0-33.0); MEAN CORPUSCULAR HGB CONC 33.7 g/dL (32.0-36.0); MEAN CORPUSCULAR VOLUME 87.3 fL (79-99); MONOCYTES % (AUTO) 8.3 % (3.0-13.0); NEUTROPHILS % (AUTO) 56.6 % (40.0-77.0); PLATELET COUNT (AUTO) 285 K/uL (130-400); RED BLOOD CELL COUNT(AUTO) 3.77 MIL/uL (4.00-5.50); RED CELL DISTRIBUTION WIDTH 12.8 % (11.0-15.5); WHITE BLOOD COUNT (AUTO) 11.6 K/uL (4.8-10.8)
[2021-12-11 18:18] LABS: APPEARANCE,URINE CLEAR (CLEAR); BILIRUBIN,URINE NEGATIVE (NEGATIVE); COLOR,URINE YELLOW (YELLOW); GLUCOSE, URINE (UA) NEGATIVE (NEGATIVE); KETONES,URINE NEGATIVE (NEGATIVE); LEUKOCYTE ESTERASE ,URINE NEGATIVE (NEGATIVE); NITRATE,URINE NEGATIVE (NEGATIVE); OCCULT BLOOD,URINE NEGATIVE (NEGATIVE); PH,URINE 5.5 (5.0-8.0); PROTEIN,URINE NEGATIVE (NEGATIVE); UROBILINOGEN,URINE 0.2 mg/dL (0.2-1.0)
[2021-12-11 18:27] LABS: CREATININE 1.3 mg/dL (0.5-1.5)
[2021-12-11 18:31] LABS: ALBUMIN 3.7 g/dL (3.5-5.0); TOTAL PROTEIN, SERUM 7.2 g/dL (6.0-8.3)
[2021-12-11 19:39] VITALS: BP 131/53
[2021-12-11] MEDS ORDERED: HYOS0.124 SL (19:52)
== END 2021-12-11 20:12 | disposition home or self-care (01) ==
LOC: EDH 17:14
DX: K59.00 Constipation, unspecified (principal); R11.0 Nausea; R53.1 Weakness; F41.9 Anxiety disorder, unspecified; E11.9 Type 2 diabetes mellitus without complications; I10 Essential (primary) hypertension; Z88.2 Allergy status to sulfonamides; Z88.1 Allergy status to other antibiotic agents; Z88.6 Allergy status to analgesic agent; Z90.49 Acquired absence of other specified parts of digestive tract; Z79.899 Other long term (current) drug therapy
CPT/HCPCS: 36415; 74176; 80053; 81003; 82948; 83690; 85025

== ENCOUNTER → 2022-05-11 | Outpatient (CLI) | payer OTHER, MEDICARE ==
[~2022-05-11] MED LIST changes: +HYOS0.124 SL
== END | disposition home or self-care (01) ==
LOC: RAH 08:27
PROVIDERS: ATTEND Podiatrist
DX: E11.51 Type 2 diabetes mellitus with diabetic peripheral angiopathy without gangrene (principal); M20.12 Hallux valgus (acquired), left foot
CPT/HCPCS: 93922

== ENCOUNTER → 2022-10-10 | Outpatient (CLI) | payer OTHER, MEDICARE ==
[2022-10-10 16:32] LABS: CREATININE 1.1 mg/dL (0.5-1.5); POTASSIUM 4.5 mmol/L (3.5-5.1)
== END | disposition home or self-care (01) ==
LOC: LAB 15:31
PROVIDERS: ATTEND Internal Medicine Cardiovascular Disease
DX: I10 Essential (primary) hypertension (principal)
CPT/HCPCS: 36415; 80048

== ENCOUNTER → 2022-10-18 | Outpatient (CLI) | payer OTHER, MEDICARE ==
[~2022-10-18] MED LIST changes: +IOHEXOL 350 MG/ML 100ML INFUS..BTL IV ONE; +METOPROLOL TARTRATE 1 MG/ML 5ML VIAL IV ONE
== END | disposition home or self-care (01) ==
LOC: RAH 07:46
PROVIDERS: ATTEND Internal Medicine Cardiovascular Disease
DX: R07.9 Chest pain, unspecified (principal)
CPT/HCPCS: 75574; J3490 ×2; Q9967

== ENCOUNTER 2022-11-06 18:36 | Emergency (ER) | payer OTHER, MEDICARE ==
[~2022-11-06] VITALS: Ht 154.9 cm; Wt 73.5 kg
[~2022-11-06 18:36] MED LIST changes: -IOHEXOL 350 MG/ML 100ML INFUS..BTL IV ONE; -METOPROLOL TARTRATE 1 MG/ML 5ML VIAL IV ONE
[2022-11-06] MEDS ORDERED: BENZOCAINE/MENTH/CETYLPYRD CL 1 EACH LOZENGE MM PRN (22:00)
[2022-11-06] MEDS ORDERED: KETOROLAC 30MG VIAL (30MG/ML) IM SCH (22:00)
[2022-11-06 23:32] VITALS: BP 125/81; PULSE 75; RESP 17; O2SAT 96
== END 2022-11-06 23:32 | disposition home or self-care (01) ==
LOC: EDH 18:36
DX: J02.9 Acute pharyngitis, unspecified (principal); F41.9 Anxiety disorder, unspecified; E11.9 Type 2 diabetes mellitus without complications; I10 Essential (primary) hypertension; Z79.4 Long term (current) use of insulin; Z79.51 Long term (current) use of inhaled steroids; Z79.52 Long term (current) use of systemic steroids; Z79.624 Long term (current) use of inhibitors of nucleotide synthesis; Z79.84 Long term (current) use of oral hypoglycemic drugs; Z79.899 Other long term (current) drug therapy; Z88.1 Allergy status to other antibiotic agents; Z88.2 Allergy status to sulfonamides; Z88.5 Allergy status to narcotic agent; Z90.49 Acquired absence of other specified parts of digestive tract
CPT/HCPCS: 99283; 87804 ×2; 96372; J1885

== ENCOUNTER → 2023-02-01 | Outpatient (CLI) | payer OTHER, MEDICARE ==
[~2023-02-01] MED LIST changes: +IOHEXOL-350 75 ML VIAL IV ONE; -OXYB5TAB15 PO; +OXYB5TAB20 PO
== END | disposition home or self-care (01) ==
LOC: RAH 07:56
PROVIDERS: ATTEND Internal Medicine Gastroenterology
DX: R10.30 Lower abdominal pain, unspecified (principal); Z90.49 Acquired absence of other specified parts of digestive tract
CPT/HCPCS: 74177; Q9967

== ENCOUNTER 2023-03-16 17:56 | Emergency (ER) | payer OTHER, MEDICARE ==
[~2023-03-16] VITALS: Ht 152.4 cm; Wt 72.6 kg
[~2023-03-16 17:56] MED LIST changes: -IOHEXOL-350 75 ML VIAL IV ONE
[2023-03-16 19:18] LABS: RAPID GROUP A STREP negative (NEGATIVE)
[2023-03-16 19:33] LABS: INFLUENZA TYPE B Negative For Type B (NEGATIVE); SARS-CoV-2, RNA, NAAT NEGATIVE SARS CoV-2 (NEGATIVE)
[2023-03-16 19:39] LABS: INFLUENZA TYPE A Positive For Type A (NEGATIVE)
[2023-03-16] MEDS ORDERED: OSEL75 PO (19:52)
[2023-03-16 19:58] VITALS: BP 148/71; PULSE 100; RESP 17; O2SAT 97
== END 2023-03-16 20:25 | disposition home or self-care (01) ==
LOC: EDH 17:56
DX: J11.1 Influenza due to unidentified influenza virus with other respiratory manifestations (principal); E11.9 Type 2 diabetes mellitus without complications; I10 Essential (primary) hypertension; F41.9 Anxiety disorder, unspecified; Z79.4 Long term (current) use of insulin; Z79.51 Long term (current) use of inhaled steroids; Z79.52 Long term (current) use of systemic steroids; Z79.624 Long term (current) use of inhibitors of nucleotide synthesis; Z79.84 Long term (current) use of oral hypoglycemic drugs; Z79.899 Other long term (current) drug therapy; Z88.1 Allergy status to other antibiotic agents; Z88.2 Allergy status to sulfonamides; Z88.5 Allergy status to narcotic agent; Z90.49 Acquired absence of other specified parts of digestive tract; Z20.822 Contact with and (suspected) exposure to COVID-19
CPT/HCPCS: 99285; 71045; 87635; 87880; 87804 ×2; 93005; C9803

== ENCOUNTER 2023-07-25 22:06 | Emergency (ER) | payer OTHER, MEDICARE ==
[~2023-07-25] VITALS: Ht 152.4 cm; Wt 74.4 kg
[~2023-07-25 22:06] MED LIST changes: +MEMA10TA21 PO; -MEMA10TA55 PO; +OSEL75 PO
[2023-07-25 22:41] LABS: APPEARANCE,URINE CLEAR (CLEAR); BILIRUBIN,URINE NEGATIVE (NEGATIVE); COLOR,URINE COLORLESS (YELLOW); GLUCOSE, URINE (UA) NEGATIVE (NEGATIVE); KETONES,URINE NEGATIVE (NEGATIVE); LEUKOCYTE ESTERASE ,URINE NEGATIVE Leu/uL (NEGATIVE); NITRATE,URINE NEGATIVE (NEGATIVE); OCCULT BLOOD,URINE NEGATIVE (NEGATIVE); PROTEIN,URINE NEGATIVE (NEGATIVE); UROBILINOGEN,URINE 0.2 mg/dL (0.2-1.0)
[2023-07-25 22:45] LABS: ADD UA MICROSCOPIC NO
[2023-07-25 22:50] LABS: BASOPHILS # (AUTO) 0.02 K/uL (0.00-0.20); BASOPHILS % (AUTO) 0.3 % (0.0-5.0); EOSINOPHILS # (AUTO) 0.04 K/uL (0.00-0.70); EOSINOPHILS % (AUTO) 0.5 % (0.0-8.0); HEMATOCRIT 33.4 % (36-48); IMMATURE GRANULOCYTE ABSOLUTE 0.02 K/uL (0-1); LYMPHOCYTES # (AUTO) 1.9 K/uL (1.0-4.8); LYMPHOCYTES % (AUTO) 24.3 % (21.0-51.0); MEAN CORPUSCULAR HEMOGLOBIN 30.8 pg (27.0-33.0); MEAN CORPUSCULAR HGB CONC 33.8 g/dL (32.0-36.0); MONOCYTES # (AUTO) 0.7 K/uL (0.1-1.0); MONOCYTES % (AUTO) 9.5 % (3.0-13.0); NEUTROPHILS # (AUTO) 5.1 K/uL (1.8-7.7); NEUTROPHILS % (AUTO) 65.1 % (40.0-77.0); PLATELET COUNT (AUTO) 228 K/uL (130-400); RED BLOOD CELL COUNT(AUTO) 3.67 MIL/uL (4.00-5.50); RED CELL DISTRIBUTION WIDTH 12.9 % (11.0-15.5); WHITE BLOOD COUNT (AUTO) 7.8 K/uL (4.8-10.8)
[2023-07-25] MEDS: 0.9%NACL 1000ML 1,000 ML IV ONE (23:05)
[2023-07-25] MEDS: ONDANSETRON 4MG INJ IVP ONE (23:05)
[2023-07-25 23:08] LABS: ALBUMIN 3.6 g/dL (3.5-5.0); BILIRUBIN,TOTAL 0.2 mg/dL (0.2-1.0); POTASSIUM 4.1 mmol/L (3.5-5.1); TOTAL PROTEIN, SERUM 7.4 g/dL (6.0-8.3)
[2023-07-25] MEDS ORDERED: IOHEXOL 350 MG/ML 100ML INFUS..BTL IV ONE (23:15)
[2023-07-26] MEDS ORDERED: DICY20TA2 PO (00:12)
[2023-07-26] MEDS: DICYCLOMINE HCL 20 MG TAB PO ONE (00:37)
[2023-07-26 01:16] VITALS: BP 154/78; PULSE 74; RESP 18; O2SAT 98
== END 2023-07-26 01:17 | disposition home or self-care (01) ==
LOC: EDH 22:06
DX: K52.9 Noninfective gastroenteritis and colitis, unspecified (principal); E87.1 Hypo-osmolality and hyponatremia; R10.31 Right lower quadrant pain; E11.9 Type 2 diabetes mellitus without complications; I10 Essential (primary) hypertension; Z79.4 Long term (current) use of insulin; Z79.51 Long term (current) use of inhaled steroids; Z79.52 Long term (current) use of systemic steroids; Z79.624 Long term (current) use of inhibitors of nucleotide synthesis; Z79.84 Long term (current) use of oral hypoglycemic drugs; Z79.899 Other long term (current) drug therapy; Z88.1 Allergy status to other antibiotic agents; Z88.2 Allergy status to sulfonamides; Z88.5 Allergy status to narcotic agent; Z90.49 Acquired absence of other specified parts of digestive tract
CPT/HCPCS: 99285; 74177; 96374; 96361; 80053; 83690; 85025; 81003; 36415; J7030; J2405; Q9967

== ENCOUNTER 2023-11-01 19:52 | Emergency (ER) | payer OTHER, MEDICARE ==
[~2023-11-01] VITALS: Ht 154.9 cm; Wt 72.6 kg
[~2023-11-01 19:52] MED LIST changes: +ASCO500C19 PO; -ASCO500C6 PO; +DICY20TA2 PO
[2023-11-01] MEDS: 0.9%NACL 1000ML 1,000 ML IV ONE (20:26)
[2023-11-01] MEDS: MORPHINE 2 MG SYG IVP ONE (20:26)
[2023-11-01] MEDS: ONDANSETRON 4MG INJ IVP ONE (20:26)
[2023-11-01 20:27] LABS: BASOPHILS # (AUTO) 0.03 K/uL (0.00-0.20); BASOPHILS % (AUTO) 0.3 % (0.0-5.0); EOSINOPHILS # (AUTO) 0.15 K/uL (0.00-0.70); EOSINOPHILS % (AUTO) 1.4 % (0.0-8.0); HEMATOCRIT 38.5 % (36-48); IMMATURE GRANULOCYTE ABSOLUTE 0.04 K/uL (0-1); LYMPHOCYTES # (AUTO) 2.1 K/uL (1.0-4.8); LYMPHOCYTES % (AUTO) 19.4 % (21.0-51.0); MEAN CORPUSCULAR HEMOGLOBIN 30.7 pg (27.0-33.0); MEAN CORPUSCULAR HGB CONC 33.5 g/dL (32.0-36.0); MEAN CORPUSCULAR VOLUME 91.7 fL (79-99); MONOCYTES # (AUTO) 0.8 K/uL (0.1-1.0); MONOCYTES % (AUTO) 7.7 % (3.0-13.0); NEUTROPHILS # (AUTO) 7.7 K/uL (1.8-7.7); NEUTROPHILS % (AUTO) 70.8 % (40.0-77.0); PLATELET COUNT (AUTO) 299 K/uL (130-400); RED CELL DISTRIBUTION WIDTH 12.4 % (11.0-15.5); WHITE BLOOD COUNT (AUTO) 10.8 K/uL (4.8-10.8)
[2023-11-01 20:52] LABS: APPEARANCE,URINE CLEAR (CLEAR); BILIRUBIN,URINE NEGATIVE (NEGATIVE); COLOR,URINE COLORLESS (YELLOW); GLUCOSE, URINE (UA) >=1000 mg/dL (NEGATIVE); KETONES,URINE NEGATIVE (NEGATIVE); LEUKOCYTE ESTERASE ,URINE NEGATIVE Leu/uL (NEGATIVE); NITRATE,URINE NEGATIVE (NEGATIVE); OCCULT BLOOD,URINE NEGATIVE (NEGATIVE); PH,URINE 5.5 (5.0-8.0); PROTEIN,URINE NEGATIVE (NEGATIVE); UROBILINOGEN,URINE 0.2 mg/dL (0.2-1.0)
[2023-11-01 20:53] LABS: ADD UA MICROSCOPIC YES
[2023-11-01 20:57] LABS: RBC,URINE 0-1 /HPF (0-1); SQUAMOUS EPITHELIAL CELL,UR RARE /HPF (0-2); WBC,URINE 0-1 /HPF (0-1)
[2023-11-01 20:57] LABS: CREATININE 1.4 mg/dL (0.5-1.0); POTASSIUM 4.2 mmol/L (3.5-5.1)
[2023-11-01 21:01] LABS: BILIRUBIN,TOTAL 0.2 mg/dL (0.2-1.0); TOTAL PROTEIN, SERUM 8.1 g/dL (6.0-8.3)
[2023-11-01 21:32] VITALS: BP 137/70; PULSE 70; RESP 14; O2SAT 98
[2023-11-01] MEDS ORDERED: ONDA-243 PO (22:05)
== END 2023-11-01 22:21 | disposition home or self-care (01) ==
LOC: EDH 19:52
DX: K52.9 Noninfective gastroenteritis and colitis, unspecified (principal); R11.2 Nausea with vomiting, unspecified; E86.0 Dehydration; E11.9 Type 2 diabetes mellitus without complications; E78.00 Pure hypercholesterolemia, unspecified; I10 Essential (primary) hypertension; Z88.1 Allergy status to other antibiotic agents; Z88.2 Allergy status to sulfonamides; Z88.5 Allergy status to narcotic agent; Z79.4 Long term (current) use of insulin; Z79.899 Other long term (current) drug therapy; Z79.84 Long term (current) use of oral hypoglycemic drugs; Z79.2 Long term (current) use of antibiotics; Z90.49 Acquired absence of other specified parts of digestive tract; Z98.890 Other specified postprocedural states
CPT/HCPCS: 99285; 74176; 96374; 96375; 80053; 83690; 85025; 81001; 36415; J2270; J7030; J2405

== ENCOUNTER → 2024-03-26 | Outpatient (CLI) | payer OTHER, MEDICARE ==
[~2024-03-26] MED LIST changes: +ONDA-243 PO
--- NOTE | 2024-03-26 13:15 | NUR ---
MBSS COMPLETED (OUTPATIENT). No aspiration/ no penetrations. Recommend regular solids (moist due to dry mouth), thin liquids and pills whole 1 per swallow as tolerated. Compensatory strategies: 1. sit upright during oral intake 2. small bites/sips 3. slow oral intake 4. extra dry swallows AMPOULE SEALER reviewed results and recommendations with patient. AMPOULE SEALER educated patient on risks and consequences of aspiration. Speech therapy not warranted at this time. All questions answered. Addendum: 03/26/[address] EMMA CABELLO Amended: Links added.
--- NOTE | 2024-03-26 15:02 | HMCIMG ---
MODIFIED BARIUM SWALLOW W CINE REASON: DYSPHAGIA, ORAL PHASE, FEEEDING DIFFICULTIES FINDINGS: Fluoroscopic assistance was provided to the speech pathologist while performing examination. For findings and dietary recommendations, refer to speech pathologist's report. FLUORO TIME: 3.6 minutes IMPRESSION: Modified barium swallow as described.
== END | disposition home or self-care (01) ==
LOC: RAH 12:33
PROVIDERS: ATTEND Internal Medicine Gastroenterology
DX: R13.11 Dysphagia, oral phase (principal); R63.30 Feeding difficulties, unspecified; K21.9 Gastro-esophageal reflux disease without esophagitis
CPT/HCPCS: 74230; 92611

== ENCOUNTER → 2024-03-31 | Outpatient (CLI) | payer OTHER, MEDICARE ==
--- NOTE | 2024-04-01 11:43 | HMCSR ---
APPROVED REPORT EXAM: Two-dimensional and M-mode echocardiogram with Doppler and color Doppler. INDICATION ICD: I50.32 Chronic Diastolic (congestive) Heart Failure 2D Dimensions RVDd3.6 cmLVEF(%)64.3 (>50%)LVED Vol(simp.)82.0 mL IVSd1.2 (0.7-1.1cm)FS(%)35 %LVES Vol(simp.)31.0 mL LVDd4.2 (3.8-5.6cm)Ao Root(2D)2.9 (2.0-3.7cm)LVEF(%, simp.)62 % PWd1.0 (0.7-1.1cm)LVOT diam2.0 (1.8-2.4cm)LA ESV INDEX (BP)31.91 mL/m2 LVDs2.7 (2.5-4.0cm)IVC diam1.9 cm Aortic Valve AoV Vmax1.5 m/Iris Peak GR8.7 mmHgLVOT Vmax0.9 m/s AoV VTI0.4 mAo Mean GR4.9 mmHgLVOT VTI0.23 m YANET (VMAX)2.0 cm2Al P1/2T405 msAVA (VTI) 2.0 cm2 Mitral Valve MV E Vmax90.8 cm/sDECEL Ztvc092 ms MV A Vmax71.3 cm/sP 1/2 T49 ms E/A ratio1.3MVA (PHT)4.5 cm2 MR Max PG62 mmHg TDI E/E' Gtulff73.7E/E' Qffotnf72.5 Pulmonary Valve PV Vmax0.8 m/sPV VTI0.23 mPV Mean GR2 mmHg PV Peak GR2.7 mmHgPI End Krista. Tejinder 1.0 cm/s Tricuspid Valve TR Vmax2.5 m/sRAP (EST) 8 cxFmDQVK97.0 mmHg TR Peak GR25.0 mmHg Left Ventricle Left ventricular cavity size is normal. There is normal LV segmental wall motion. There is mild rober ntric left ventricular hypertrophy. Sigmoid septum is present. LVEF is 60-65%. Left ventricular filli ng pattern is normal for age. Right Ventricle The right ventricle is normal size. The right ventricular systolic function is normal. Normal TAPSE. Atria The left atrium size is normal. The interatrial septum is intact with no evidence for an atrial septa l defect. The right atrium size is normal. Aortic Valve Aortic valve is trileaflet. Aortic valve leaflets are sclerotic but open well. Trace to mild aortic r egurgitation. AR deceleration time is 1396 ms. There is no aortic valvular stenosis. Mitral Valve Mitral valve leaflets are mildly sclerotic but open well. Mitral regurgitation is trace to mild. Ther e is no mitral valve stenosis. Tricuspid Valve The tricuspid valve leaflets appear normal. There is trace to mild tricuspid regurgitation. Right osmar tricular systolic pressure is estimated at 33 mmHg. Pulmonic Valve The pulmonic valve leaflets are thin and pliable; valve motion is normal. There is trace pulmonic rajeev vular regurgitation. Great Vessels The aortic root is normal in size. IVC is dilated and collapses >50% with inspiration. Pericardium No pericardial effusion. Conclusion The left atrium size is normal. There is mild concentric left ventricular hypertrophy. Sigmoid septum is present. There is normal LV segmental wall motion. Left ventricular filling pattern is normal for age. The left atrium size is normal. Aortic valve is trileaflet. Aortic valve leaflets are sclerotic but open well. Trace to mild aortic regurgitation. AR deceleration time is 1396 ms. Mitral regurgitation is trace to mild. No pericardial effusion.
== END | disposition home or self-care (01) ==
LOC: SHCH 10:42
PROVIDERS: ATTEND Internal Medicine Cardiovascular Disease
DX: I08.3 Combined rheumatic disorders of mitral, aortic and tricuspid valves (principal); I50.32 Chronic diastolic (congestive) heart failure
CPT/HCPCS: 93306

== ENCOUNTER 2024-08-25 21:57 | Emergency (ER) | payer OTHER, MEDICAID ==
[~2024-08-25] VITALS: Ht 154.9 cm; Wt 72.6 kg
[2024-08-25 21:58] VITALS: TEMP 98.5
--- NOTE | 2024-08-25 22:11 | ERN ---
ED Note History of Present Illness Stated Complaint: C/O RLQ PAIN W/ NAUSEA Chief Complaint: Abdominal Pain Time Seen by MD: 22:04 Dictation: PATIENT IS A 68-YEAR-OLD FEMALE COMING IN WITH A AN ACUTE ONSET OF A RIGHT LOWER QUADRANT PAIN TENDERNESS WITH NAUSEA, STARTED SATURDAY. SHE DENIES FEVER CHILLS NO CHANGE IN URINATION NO FLANK PAIN. SHE HAS NOT SEEN HER PRIMARY CARE DOCTOR, STATES SHE STILL HAS A APPENDIX. Allergies: Coded Allergies: ceftriaxone (Unverified Allergy, Intermediate, RASH, 04/21/17) sulfamethoxazole (Unverified Allergy, Intermediate, 05/08/13) trimethoprim (Unverified Allergy, Intermediate, 05/08/13) celecoxib (Unverified Allergy, Mild, DIZZINESS, 05/08/13) codeine (Unverified Allergy, Mild, UNKNOWN, 05/08/13) levofloxacin (Unverified Allergy, Mild, UNKNOWN, 05/08/13) Home Meds Active Scripts Ondansetron (Ondansetron Odt) 4 Mg Tab.rapdis, 4 MG PO Q6HPRN PRN for nausea, #16 TAB 0 Refills Prov:HANNA BARBA NP 11/01/23 Dicyclomine HCl (Bentyl) 20 Mg Tab, 20 MG PO Q6HPRN PRN for ABDOMINAL CRAMPING, #30 TAB Prov:HANNA BARBA AIRPLANE PATROLLER 11/01/23 Dicyclomine HCl (Bentyl) 20 Mg Tab, 20 MG PO Q6HPRN for ABD CRAMPS/PAIN, #30 TAB Prov:HANNA BARBA NP 07/26/23 Oseltamivir Phosphate (Tamiflu) 75 Mg Cap, 75 MG PO BID for 5 Days, #10 CAP Prov:BUDDY DAVIS NP 03/16/23 Hyoscyamine Sulfate (Levsin-Sl) 0.125 Mg Tab.subl, 0.125 MG SL TIDP PRN for ABDOMINAL PAIN, #12 TAB.SL 0 Refills Prov:ARLINE NIETO MD 12/11/21 Mineral Oil/Petrolatum,White (Refresh Lacri-Lube Ointment) 3.5 Gm Oint...g., 3.5 GM OP AT BEDTIME for 30 Days, #1 TUBE 0 Refills Prov:ZULEYMA KEMP MD 01/03/21 Prednisone (Prednisone) 20 Mg Tablet, 1 TAB PO AD for 6 Days, #14 TAB 0 Refills TAKE 1 TAB BY MOUTH THREE TIMES PER DAY X3 DAYS, THEN TAKE 1 TAB BY MOUTH TWICE A DAY X2 DAYS, THEN TAKE 1 TAB BY MOUTH ONCE A DAY X1 DAY. Prov:ZULEYMA KEMP MD 01/03/21 Famciclovir (Famciclovir) 500 Mg Tablet, 500 MG PO TID for 7 Days, #21 TAB Prov:ZULEYMA KEMP MD 01/03/21 Budesonide/Formoterol Fumarate (Symbicort 160-4.5 Mcg Inhaler) 10.2 Gm Hfa.aer.ad, 10.2 GM IH Q12H for 30 Days, #1 INHALER Prov:ABEBE BECERRIL AIRPLANE PATROLLER 04/16/20 Benzonatate (Tessalon Perles) 100 Mg Cap, 200 MG PO Q8H for 10 Days, #60 CAP Prov:ABEBE BECERRIL AIRPLANE PATROLLER 04/16/20 Ascorbic Acid (Vitamin C) 500 Mg Capsule.er, 500 MG PO BID for 30 Days, #60 CAP Prov:ABEBE BECERRIL [employer]PLANE PATROLLER 04/16/20 Zinc Gluconate (Zinc) 50 Mg Tablet, 50 MG PO DAILY for 30 Days, #30 TAB Prov:ABEBE BECERRIL [employer]PLANE PATROLLER 04/16/20 Albuterol Sulfate (Proair Hfa) 8.5 Gm Hfa.aer.ad, 8.5 GM IH Q4HPRN PRN for SHORTNESS OF BREATH for 10 Days, #1 INHALER Prov:ABEBE BECERRIL [employer]PLANE PATROLLER 04/16/20 Dexamethasone (Decadron) 6 Mg Tablet, 6 MG PO DAILY for 7 Days, #7 TAB Prov:ABEBE BECERRIL [employer]PLANE PATROLLER 04/16/20 Reported Medications Memantine HCl (Memantine HCl) 10 Mg Tablet, 10 MG PO HS, TAB 04/16/20 Montelukast Sodium (Montelukast Sodium) 10 Mg Tablet, 10 MG PO DAILY, TAB 04/16/20 Dextromethor/Acetamin/Diphen (Diabetic Tussin Nighttime Liq) 118 Ml Liquid, 118 ML PO Q6HPRN PRN for COUGH/COLD SYMPTOMS 04/16/20 Famotidine (Famotidine) 20 Mg Tablet, 20 MG PO DAILY, TAB 04/16/20 Sucralfate (Sucralfate) 1 Gm Tablet, 1 GM PO AD, TAB 04/16/20 Acetaminophen (Tylenol) 325 Mg Tablet, 650 MG PO [id number] PRN for PAIN LEVEL 1 TO 3, TAB 04/21/17 Cholecalciferol (Vitamin D3) (Vitamin D3) 5,000 Unit Tablet, 5000 UNIT PO DAILY, TAB 04/21/17 Albuterol Sulfate (Proair Respiclick) 90 Mcg Aer.pow.ba, 90 MCG IH Q4HPRN PRN for SHORTNESS OF BREATH 04/21/17 Loratadine (Loratadine) 10 Mg Tablet, 10 MG PO DAILY, TAB 04/21/17 Pravastatin Sodium (Pravastatin Sodium) 20 Mg Tablet, 20 MG PO HS, TAB 04/21/17 Metformin HCl (Metformin HCl) 500 Mg Tablet, 1000 MG PO DAILY, TAB 04/21/17 Simethicone (Gas Relief 80) 80 Mg Tab.chew, 80 MG PO QID PRN for GI GAS, TAB.CHEW 04/21/17 Linagliptin (Tradjenta) 5 Mg Tablet, 5 MG PO DAILY, TAB 04/21/17 Oxybutynin Chloride (Oxybutynin Chloride) 5 Mg Tablet, 5 MG PO DAILY, TAB 04/21/17 Esomeprazole Magnesium (Nexium) 40 Mg Capsule.dr, 40 MG PO DAILY, CAP 04/21/17 Hum Insulin NPH/Reg Insulin Hm (Novolin 70-30 100 Unit/ml Vial) 100 Unit/1 Ml Vial, 20 UNITS SQ HS, VIAL 04/21/17 Hum Insulin NPH/Reg Insulin Hm (Novolin 70-30 100 Unit/ml Vial) 100 Unit/1 Ml Vial, 10 UNITS SQ DAILY, VIAL 04/21/17 Hyoscyamine Sulfate (Hyoscyamine Sulfate) 0.125 Mg Tab.rapdis, 0.125 MG PO DAILY PRN for MUSCLE SPASMS, TAB 04/21/17 Levothyroxine Sodium (Levothyroxine Sodium) 100 Mcg Tablet, 100 MCG PO ACBKFST, TAB 04/21/17 Azithromycin (Zithromax) 250 Mg Tablet, 500 MG PO DAILY, TAB 04/21/17 Past Medical History Past Medical History: Arthritis, Diabetes-Type II, Hypertension, Hypothyroid Additional Past Medical Hx: GASTRITIS Surgical History: Cholecystectomy, Social History: Lives with family History: Not Applicable RN Note Reviewed/Agreed w/PFSH: Yes Review of System Dictation CONSTITUTIONAL: NEGATIVE EXCEPT FOR HPI HEAD/FACE: NEGATIVE EXCEPT FOR HPI EENT: NEGATIVE EXCEPT FOR HPI RESPIRATORY: NEGATIVE EXCEPT FOR HPI GASTROINTESTINAL/ABDOMINAL: NEGATIVE EXCEPT FOR HPI RIGHT LOWER QUADRANT PAIN WITH NAUSEA THREE DAYS GENITOURINARY: NEGATIVE EXCEPT FOR HPI MUSCULOSKELETAL: NEGATIVE EXCEPT FOR HPI INTEGUMENTARY: NEGATIVE EXCEPT FOR HPI NEUROLOGICAL/PSYCH: NEGATIVE EXCEPT FOR HPI HEMATOLOGIC/LYMPHATIC: NEGATIVE EXCEPT FOR HPI ALL SYSTEMS NEGATIVE, EXCEPT NOTED ABOVE. 13 POINT REVIEW OF SYSTEMS ASSESSED AND ALL NEGATIVE EXCEPT FOR ABOVE. Initial Vital Sign VS Vital Signs Date Time Temp Pulse Resp B/P (MAP) Pulse Ox O2 Delivery O2 Flow Rate FiO2 08/25/24 21:58 98.4 79 20 142/58 97 Room Air 08/25/24 23:42 0 21 Physical Exam Dictation VITAL SIGNS REVIEWED GENERAL APPEARANCE: ALERT, ORIENTED X 3, PAIN RIGHT MODERATE ACUTE DISTRESS, WELL DEVELOPED, NOURISHED. HEAD AND FACE: NON-TRAUMATIC. EYES: PERRL, PINK CONJUNCTIVAS, EYELID NO TRAUMA, ANTERIOR CHAMBER WITH ARCUS SENILIS. EARS: PINNAS INTACT AND NO SIGNS OF TRAUMA OR ERYTHEMA EAR CANALS CLEAR AND NO DISCHARGE TM NO ERYTHEMA NOSE: NO DISCHARGE, NO BLEEDING. OROPHARYNX: MOUTH NORMAL, TONGUE PINK, PHARYNX CLEAR,NO ERYTHEMA, TONSILS NO EXUDATES, NO ABSCESSES NOTED, MUCOUS MEMBRANE MOIST NECK: SUPPLE, NON-TENDER, NO THYROMEGALY, NO MASSES, NO JVD, NO BRUITS BREAST:DEFERRED CHEST:NO TENDERNESS, NO CREPITUS, NO PARADOXICAL MOVEMENT, NO RETRACTIONS LUNGS:CLEAR, WELL-VENTILATED, SYMMETRIC, NO RALES, NO WHEEZING, NO RHONCHI, NO STRIDOR, GOOD BREATH SOUNDS BILATERALLY HEART: REGULAR RATE, REGULAR RHYTHM, NO MURMUR, NO GALLOPS VASCULAR: NO PERIPHERAL EDEMA, ABDOMEN: SOFT, POSITIVE BOWEL SOUNDS, NONDISTENDED, NO GUARDING, MILD REBOUND TENDERNESS MCBURNEY'S PAIN RECTAL: DEFERRED GENITAL: DEFERRED NEUROLOGICAL: NORMAL SPEECH, MOTOR FUNCTION INTACT, SENSORY FUNCTION INTACT MUSCULOSKELETAL: NECK NONTENDER, FULL RANGE OF MOTION, BACK NONTENDER, FULL RANGE OF MOTION, EXTREMITIES: NONTENDER, FULL RANGE OF MOTION SKIN: COLOR PINK, DRY, NO TURGOR, NO RASH, NO LACERATIONS, NO ABRASIONS, NO CONTUSIONS. LYMPHATIC: DEFERRED Results (Laboratory/Radiology) Laboratory/Radiology Laboratory Tests Test 08/25/24 22:01 08/25/24 22:20 Urine Color Light-Yellow (YELLOW) Urine Appearance CLEAR (CLEAR) Urine pH 5.5 (5.0-8.0) Urine Specific [place] 1.009 (1.001-1.031) Urine Protein NEGATIVE mg/dL (NEGATIVE) Urine Glucose (UA) >=1000 mg/dL (NEGATIVE) H Urine Ketones NEGATIVE mg/dL (NEGATIVE) Urine Occult Blood NEGATIVE (NEGATIVE) Urine Nitrate NEGATIVE (NEGATIVE) Urine Bilirubin NEGATIVE mg/dL (NEGATIVE) Urine Urobilinogen 0.2 mg/dL (0.2-1.0) Urine Leukocyte Esterase NEGATIVE Jailyn/uL Urine RBC 0-1 /HPF (0-1) Urine WBC 2-5 /HPF (0-1) H Urine Bacteria None /HPF (None Seen) White Blood Count 8.9 K/uL (4.8-10.8) Red Blood Count 3.89 MIL/uL (4.00-5.50) L Hemoglobin 11.5 g/dL (12.0-16.0) L Hematocrit 35.4 % (36-48) L Mean Corpuscular Volume 91.0 fL (79-99) Mean Corpuscular Hemoglobin 29.6 pg (27.0-33.0) Mean Corpuscular Hemoglobin Concent 32.5 g/dL (32.0-36.0) Red Cell Distribution Width 12.4 % (11.0-15.5) Platelet Count 251 K/uL (130-400) Mean Platelet Volume 10.5 fL (7.5-10.5) Immature Granulocyte % (Auto) 0.2 % (0-1) Neutrophils (%) (Auto) 49.7 % (40.0-77.0) Lymphocytes (%) (Auto) 38.0 % (21.0-51.0) Monocytes (%) (Auto) 8.9 % (3.0-13.0) Eosinophils (%) (Auto) 2.9 % (0.0-8.0) Basophils (%) (Auto) 0.3 % (0.0-5.0) Neutrophils # (Auto) 4.4 K/uL (1.8-7.7) Lymphocytes # (Auto) 3.4 K/uL (1.0-4.8) Monocytes # (Auto) 0.8 K/uL (0.1-1.0) Eosinophils # (Auto) 0.26 K/uL (0.00-0.70) Basophils # (Auto) 0.03 K/uL (0.00-0.20) Absolute Immature Granulocyte (auto 0.02 K/uL (0-1) Nucleated Red Blood Cells 0.0 % (0.0-0.19) Sodium Level 137 mmol/L (136-145) Potassium Level 4.9 mmol/L (3.5-5.1) Chloride Level 104 mmol/L (101-111) Carbon Dioxide Level 27 mmol/L (21-32) Blood Urea Nitrogen 31 mg/dL (7-18) H Creatinine 1.4 mg/dL (0.5-1.0) H Glomerular Filtration Rate Calc 41 mL/min (>90) Random Glucose 185 mg/dL (70-105) H Total Calcium 8.7 mg/dL (8.5-10.1) Lipase 65 U/L (16-77) CT ABDOMEN/PELVIS W/O CONTRAST HISTORY: Right lower abdominal pain COMPARISON: 11/01/2023 TECHNIQUE: Multiple sequential axial images of the abdomen and pelvis were obtained from the dome of the diaphragm through symphysis pubis. Patient was not given contrast through intravenous route. Oral contrast was not given. FINDINGS: No pleural effusion is seen bilaterally. There is no evidence of parenchymal disease or pulmonary nodule of the visualized lower lungs. Degenerative changes of the thoracolumbar spine are present. The heart is not enlarged. The liver, spleen, adrenal glands and pancreas are unremarkable. No hydronephrosis is seen. Uterus is enlarged and may be related to fibroid uterus. There is mild diverticulosis. No evidence of renal stone is seen. Fecal material is seen in the colon. There are normal size retroperitoneal and mesenteric lymph nodes. No ascites is seen. Atherosclerotic changes are present. Pelvic sidewalls are symmetric bilaterally. Bladder is well distended without wall thickening. IMPRESSION: 1. No hydronephrosis is seen. Uterus is enlarged and may be related to fibroid uterus. There is mild diverticulosis. Labs Reviewed?: Yes ED Course ED Course Orders Procedure Category Date Status Time Cbc With Differential LAB 08/25/24 Complete 22:08 0.9%Nacl 1000ml (Ns PHA 08/25/24 Complete 1000ml) 22:30 Ondansetron 4mg Inj PHA 08/25/24 Complete (Zofran 4mg Inj) 22:30 Lipase LAB 08/25/24 Complete 22:08 Basic Metabolic Panel LAB 08/25/24 Complete 22:08 Urinalysis LAB 08/25/24 Complete W/Microscopic 22:01 Ct Abdomen/Pelvis W/O CT 08/25/24 Resulted Contrast 22:08 Current Medications Medications (Trade) Dose Ordered Sig/[place] Route PRN Reason Start Time Stop Time Status Last Admin Dose Admin Ondansetron HCl (zoFRAN 4MG INJ) 4 mg ONCE ONCE IVP 08/25/24 22:30 08/25/24 22:31 DC 08/25/24 22:31 Sodium Chloride 1,000 ml @ 0 mls/hr ONCE ONCE IV 08/25/24 22:30 08/25/24 22:31 DC 08/25/24 22:31 Vital Signs Date Time Temp Pulse Resp B/P (MAP) Pulse Ox O2 Delivery O2 Flow Rate FiO2 08/25/24 23:42 71 16 105/50 98 Room Air* 0 21 08/25/24 21:58 98.4 79 20 142/58 97 Room Air 2358/patient discharged home with diverticulosis and uterine fibroid. Told to follow up with her vacuum cleaner repair person doctor next several days. Discharged home with pain management. Medical Decision Making MDM MDM: Differential diagnosis: Appendicitis/diverticulitis/hernia/UTI/electrolyte imbalance/dehydration/uterine fibroid Rationale: Tests considered and ordered secondary to shared decision making include: Labs/CT Previous outside records reviewed: Old ER visits. Risk of complication and/or morbidity or mortality of patient management: None Medications-Per medication reconciliation Need for hospitalization: Patient does not meet criteria for hospitalization. None Need for emergency major/minor surgery: No There are no social concerns with this patient. Prescription drug management Tylenol Prescriptions will include symptomatic care Patient's prior external medical records from other ER visits were reviewed by me as indicated. Prior testing and results from previous visits were reviewed. Prior tests were taken into account with medical decision making and resource utilization, independent historian/historians were used to obtain complete medical history. I independently interpreted the test that were performed, results were reviewed by me and considered findings on radiology if ordered. Medical management and examination interpretation discussions were had by me with other qualified healthcare professionals as indicated for the patient's care. DX & DISP Disposition: Discharge Departure Impression: Primary Impression: Uterine fibroid Additional Impressions: Diverticulosis, Stage 3 chronic kidney disease Condition: Stable Scripts Dicyclomine HCl (Bentyl) 20 Mg Tab 20 MG PO Q6HPRN PRN for Abdominal pain /cramps, #20 TAB Prov: HANNA BARBA NP 08/26/24 Additional Instructions: Follow-up with primary care provider in 1 to 2 days. Take medications as directed here in the emergency room. Okay to continue home medications unless otherwise discussed during your visit in the emergency room today. Return to your nearest emergency room if symptoms worsen or if there is no improvement. Call [phone] if you need immediate assistance. Take Tylenol or Motrin [id number] as needed and if no contraindications are present. Increase oral hydration. A wound culture or urine culture was ordered here in the emergency room department please follow-up with primary care provider and advise them to get repeat ports from our facility. If you had any Gael wrap/splints that were applied here, please do not remove them until you see your primary care or specialty. Take Bentyl as directed for pain. Follow up with the your vacuum cleaner repair person doctor for your uterine fibroid in the next several days. Referrals: RENE CORRIGAN DO (PCP) Time of Disposition: 00:01 I have reviewed the case, and I agree with, Diagnosis and Plan HANNA BARBA NP August 25, 2024 22:11
[2024-08-25] MEDS: ondanSETRON 4MG INJ IVP ONE (22:31)
[2024-08-25] MEDS: 0.9%NACL 1000ML 1,000 ML IV ONE (22:31)
[2024-08-25 22:32] LABS: BASOPHILS # (AUTO) 0.03 K/uL (0.00-0.20); BASOPHILS % (AUTO) 0.3 % (0.0-5.0); EOSINOPHILS # (AUTO) 0.26 K/uL (0.00-0.70); EOSINOPHILS % (AUTO) 2.9 % (0.0-8.0); HEMATOCRIT 35.4 % (36-48); IMMATURE GRANULOCYTE ABSOLUTE 0.02 K/uL (0-1); LYMPHOCYTES # (AUTO) 3.4 K/uL (1.0-4.8); MEAN CORPUSCULAR HEMOGLOBIN 29.6 pg (27.0-33.0); MEAN CORPUSCULAR HGB CONC 32.5 g/dL (32.0-36.0); MONOCYTES # (AUTO) 0.8 K/uL (0.1-1.0); MONOCYTES % (AUTO) 8.9 % (3.0-13.0); NEUTROPHILS # (AUTO) 4.4 K/uL (1.8-7.7); NEUTROPHILS % (AUTO) 49.7 % (40.0-77.0); PLATELET COUNT (AUTO) 251 K/uL (130-400); RED BLOOD CELL COUNT(AUTO) 3.89 MIL/uL (4.00-5.50); RED CELL DISTRIBUTION WIDTH 12.4 % (11.0-15.5); WHITE BLOOD COUNT (AUTO) 8.9 K/uL (4.8-10.8)
[2024-08-25 22:39] LABS: CREATININE 1.4 mg/dL (0.5-1.0); POTASSIUM 4.9 mmol/L (3.5-5.1)
[2024-08-25 23:02] LABS: APPEARANCE,URINE CLEAR (CLEAR); BILIRUBIN,URINE NEGATIVE (NEGATIVE); COLOR,URINE Light-Yellow (YELLOW); GLUCOSE, URINE (UA) >=1000 mg/dL (NEGATIVE); KETONES,URINE NEGATIVE (NEGATIVE); LEUKOCYTE ESTERASE ,URINE NEGATIVE Leu/uL (NEGATIVE); NITRATE,URINE NEGATIVE (NEGATIVE); OCCULT BLOOD,URINE NEGATIVE (NEGATIVE); PH,URINE 5.5 (5.0-8.0); PROTEIN,URINE NEGATIVE (NEGATIVE); RBC,URINE 0-1 /HPF (0-1); UROBILINOGEN,URINE 0.2 mg/dL (0.2-1.0)
[2024-08-25 23:42] VITALS: BP 105/50; PULSE 71; RESP 16; O2SAT 98
--- NOTE | 2024-08-25 23:42 | HMCIMG ---
CT ABDOMEN/PELVIS W/O CONTRAST HISTORY: Right lower abdominal pain COMPARISON: 11/01/2023 TECHNIQUE: Multiple sequential axial images of the abdomen and pelvis were obtained from the dome of the diaphragm through symphysis pubis. Patient was not given contrast through intravenous route. Oral contrast was not given. FINDINGS: No pleural effusion is seen bilaterally. There is no evidence of parenchymal disease or pulmonary nodule of the visualized lower lungs. Degenerative changes of the thoracolumbar spine are present. The heart is not enlarged. The liver, spleen, adrenal glands and pancreas are unremarkable. No hydronephrosis is seen. Uterus is enlarged and may be related to fibroid uterus. There is mild diverticulosis. No evidence of renal stone is seen. Fecal material is seen in the colon. There are normal size retroperitoneal and mesenteric lymph nodes. No ascites is seen. Atherosclerotic changes are present. Pelvic sidewalls are symmetric bilaterally. Bladder is well distended without wall thickening. IMPRESSION: 1. No hydronephrosis is seen. Uterus is enlarged and may be related to fibroid uterus. There is mild diverticulosis. CT was performed with one or more following dose reduction techniques: automated exposure control, adjustment of the mA and kv according to patient's size, or use of a iterative reconstruction technique.
== END 2024-08-26 00:39 | disposition home or self-care (01) ==
LOC: EDH 21:57
DX: D25.9 Leiomyoma of uterus, unspecified (principal); I12.9 Hypertensive chronic kidney disease with stage 1 through stage 4 chronic kidney disease, or unspecified chronic kidney disease; E11.22 Type 2 diabetes mellitus with diabetic chronic kidney disease; N18.30 Chronic kidney disease, stage 3 unspecified; K57.30 Diverticulosis of large intestine without perforation or abscess without bleeding; E03.9 Hypothyroidism, unspecified; M19.90 Unspecified osteoarthritis, unspecified site; Z79.4 Long term (current) use of insulin; Z79.51 Long term (current) use of inhaled steroids; Z79.52 Long term (current) use of systemic steroids; Z79.624 Long term (current) use of inhibitors of nucleotide synthesis; Z79.84 Long term (current) use of oral hypoglycemic drugs; Z79.899 Other long term (current) drug therapy; Z87.19 Personal history of other diseases of the digestive system; Z88.1 Allergy status to other antibiotic agents; Z88.2 Allergy status to sulfonamides; Z88.5 Allergy status to narcotic agent; Z90.49 Acquired absence of other specified parts of digestive tract
CPT/HCPCS: 99285; 74176; 96374; 96361; 80048; 83690; 85025; 81001; 36415; J7030; J2405

== ENCOUNTER 2024-10-21 14:48 | Emergency (ER) | payer OTHER, MEDICAID ==
[~2024-10-21] VITALS: Ht 152.4 cm; Wt 72.1 kg
[~2024-10-21 14:48] MED LIST changes: -PRAV20TA4 PO; +PRAV20TA59 PO
--- NOTE | 2024-10-21 15:20 | ERN ---
ED Note History of Present Illness Stated Complaint: FALL Chief Complaint: Mechanical Fall Time Seen by MD: 14:52 Dictation: 68-YEAR-OLD FEMALE COMING IN TODAY FROM PHYSICAL THERAPY WHERE SHE STATES SHE WAS WALKING IN THE PHYSICAL THERAPY BILLING, TRIPPED OVER A PIECE OF EQUIPMENT LANDED ON HER BILATERAL KNEE. COMPLAINING OF BILATERAL KNEE PAIN, SKIN IS INTACT SHE HAS NOT TAKEN ANYTHING PRIOR TO ARRIVAL FOR PAIN DISTAL NEUROVASCULAR CMS INTACT. NO SHORTENING OR ROTATION OF EITHER EXTREMITY, NO PELVIC OR HIP PAIN. Allergies: Coded Allergies: ceftriaxone (Unverified Allergy, Intermediate, RASH, 04/21/17) sulfamethoxazole (Unverified Allergy, Intermediate, 05/08/13) trimethoprim (Unverified Allergy, Intermediate, 05/08/13) celecoxib (Unverified Allergy, Mild, DIZZINESS, 05/08/13) codeine (Unverified Allergy, Mild, UNKNOWN, 05/08/13) levofloxacin (Unverified Allergy, Mild, UNKNOWN, 05/08/13) Home Meds Active Scripts Dicyclomine HCl (Bentyl) 20 Mg Tab, 20 MG PO Q6HPRN PRN for Abdominal pain /cramps, #20 TAB Prov:HANNA BARBA SALES CONTRACT ADMINISTRATOR 08/26/24 Ondansetron (Ondansetron Odt) 4 Mg Tab.rapdis, 4 MG PO Q6HPRN PRN for nausea, #16 TAB 0 Refills Prov:HANNA BARBA SALES CONTRACT ADMINISTRATOR 11/01/23 Dicyclomine HCl (Bentyl) 20 Mg Tab, 20 MG PO Q6HPRN PRN for ABDOMINAL CRAMPING, #30 TAB Prov:HANNA BARBA SALES CONTRACT ADMINISTRATOR 11/01/23 Dicyclomine HCl (Bentyl) 20 Mg Tab, 20 MG PO Q6HPRN for ABD CRAMPS/PAIN, #30 TAB Prov:HANNA BARBA SALES CONTRACT ADMINISTRATOR 07/26/23 Oseltamivir Phosphate (Tamiflu) 75 Mg Cap, 75 MG PO BID for 5 Days, #10 CAP Prov:BUDDY DAVIS SALES CONTRACT ADMINISTRATOR 03/16/23 Hyoscyamine Sulfate (Levsin-Sl) 0.125 Mg Tab.subl, 0.125 MG SL TIDP PRN for ABDOMINAL PAIN, #12 TAB.SL 0 Refills Prov:ARLINE NIETO MD 12/11/21 Mineral Oil/Petrolatum,White (Refresh Lacri-Lube Ointment) 3.5 Gm Oint...g., 3.5 GM OP AT BEDTIME for 30 Days, #1 TUBE 0 Refills Prov:ZULEYMA KEMP MD 01/03/21 Prednisone (Prednisone) 20 Mg Tablet, 1 TAB PO AD for 6 Days, #14 TAB 0 Refills TAKE 1 TAB BY MOUTH THREE TIMES PER DAY X3 DAYS, THEN TAKE 1 TAB BY MOUTH TWICE A DAY X2 DAYS, THEN TAKE 1 TAB BY MOUTH ONCE A DAY X1 DAY. Prov:ZULEYMA KEMP MD 01/03/21 Famciclovir (Famciclovir) 500 Mg Tablet, 500 MG PO TID for 7 Days, #21 TAB Prov:ZULEYMA KEMP MD 01/03/21 Budesonide/Formoterol Fumarate (Symbicort 160-4.5 Mcg Inhaler) 10.2 Gm Hfa.aer.ad, 10.2 GM IH Q12H for 30 Days, #1 INHALER Prov:ABEBE BECERRIL SALES CONTRACT ADMINISTRATOR 04/16/20 Benzonatate (Tessalon Perles) 100 Mg Cap, 200 MG PO Q8H for 10 Days, #60 CAP Prov:ABEBE BECERRIL SALES CONTRACT ADMINISTRATOR 04/16/20 Ascorbic Acid (Vitamin C) 500 Mg Capsule.er, 500 MG PO BID for 30 Days, #60 CAP Prov:ABEBE BECERRIL SALES CONTRACT ADMINISTRATOR 04/16/20 Zinc Gluconate (Zinc) 50 Mg Tablet, 50 MG PO DAILY for 30 Days, #30 TAB Prov:ABEBE BECERRIL SALES CONTRACT ADMINISTRATOR 04/16/20 Albuterol Sulfate (Proair Hfa) 8.5 Gm Hfa.aer.ad, 8.5 GM IH Q4HPRN PRN for SHORTNESS OF BREATH for 10 Days, #1 INHALER Prov:ABEBE BECERRIL SALES CONTRACT ADMINISTRATOR 04/16/20 Dexamethasone (Decadron) 6 Mg Tablet, 6 MG PO DAILY for 7 Days, #7 TAB Prov:ABEBE BECERRIL SALES CONTRACT ADMINISTRATOR 04/16/20 Reported Medications Memantine HCl (Memantine HCl) 10 Mg Tablet, 10 MG PO HS, TAB 04/16/20 Montelukast Sodium (Montelukast Sodium) 10 Mg Tablet, 10 MG PO DAILY, TAB 04/16/20 Dextromethor/Acetamin/Diphen (Diabetic Tussin Nighttime Liq) 118 Ml Liquid, 118 ML PO Q6HPRN PRN for COUGH/COLD SYMPTOMS 04/16/20 Famotidine (Famotidine) 20 Mg Tablet, 20 MG PO DAILY, TAB 04/16/20 Sucralfate (Sucralfate) 1 Gm Tablet, 1 GM PO AD, TAB 04/16/20 Acetaminophen (Tylenol) 325 Mg Tablet, 650 MG PO [id number] PRN for PAIN LEVEL 1 TO 3, TAB 04/21/17 Cholecalciferol (Vitamin D3) (Vitamin D3) 5,000 Unit Tablet, 5000 UNIT PO DAILY, TAB 04/21/17 Albuterol Sulfate (Proair Respiclick) 90 Mcg Aer.pow.ba, 90 MCG IH Q4HPRN PRN for SHORTNESS OF BREATH 04/21/17 Loratadine (Loratadine) 10 Mg Tablet, 10 MG PO DAILY, TAB 04/21/17 Pravastatin Sodium (Pravastatin Sodium) 20 Mg Tablet, 20 MG PO HS, TAB 04/21/17 Metformin HCl (Metformin HCl) 500 Mg Tablet, 1000 MG PO DAILY, TAB 04/21/17 Simethicone (Gas Relief 80) 80 Mg Tab.chew, 80 MG PO QID PRN for GI GAS, TA B.CHEW 04/21/17 Linagliptin (Tradjenta) 5 Mg Tablet, 5 MG PO DAILY, TAB 04/21/17 Oxybutynin Chloride (Oxybutynin Chloride) 5 Mg Tablet, 5 MG PO DAILY, TAB 04/21/17 Esomeprazole Magnesium (Nexium) 40 Mg Capsule.dr, 40 MG PO DAILY, CAP 04/21/17 Hum Insulin NPH/Reg Insulin Hm (Novolin 70-30 100 Unit/ml Vial) 100 Unit/1 Ml Vial, 20 UNITS SQ HS, VIAL 04/21/17 Hum Insulin NPH/Reg Insulin Hm (Novolin 70-30 100 Unit/ml Vial) 100 Unit/1 Ml Vial, 10 UNITS SQ DAILY, VIAL 04/21/17 Hyoscyamine Sulfate (Hyoscyamine Sulfate) 0.125 Mg Tab.rapdis, 0.125 MG PO DAILY PRN for MUSCLE SPASMS, TAB 04/21/17 Levothyroxine Sodium (Levothyroxine Sodium) 100 Mcg Tablet, 100 MCG PO ACBKFST, TAB 04/21/17 Azithromycin (Zithromax) 250 Mg Tablet, 500 MG PO DAILY, TAB 04/21/17 Past Medical History Past Medical History: Arthritis, Diabetes-Type II, Hypertension, Hypothyroid Additional Past Medical Hx: GASTRITIS Surgical History: Cholecystectomy, Social History: Lives with family History: Not Applicable RN Note Reviewed/Agreed w/PFSH: Yes Review of System Dictation Normal ROS CONSTITUTIONAL: Negative except for HPI HEAD/FACE: Negative except for HPI EENT: Negative except for HPI RESPIRATORY: Negative except for HPI GASTROINTESTINAL/ABDOMINAL: Negative except for HPI GENITOURINARY: Negative except for HPI MUSCULOSKELETAL: Negative except for HPI bilateral knee pain tenderness skin intact INTEGUMENTARY: Negative except for HPI NEUROLOGICAL/PSYCH: Negative except for HPI HEMATOLOGIC/LYMPHATIC: Negative except for HPI All Systems Negative, Except as noted above. 13 point review of systems assessed and all negative except for above. Initial Vital Sign VS Vital Signs Date Time Temp Pulse Resp B/P (MAP) Pulse Ox O2 Delivery O2 Flow Rate FiO2 10/21/24 15:03 98.6 89 20 165/73 98 Room Air 10/21/24 15:13 0 21 Physical Exam Dictation Vital Signs reviewed General Appearance: Alert, oriented x 3, moderate acute distress, well developed, nourished. Head and Face: non-traumatic. Eyes: PERRL, pink conjunctivas, eyelid no trauma, anterior chamber with arcus senilis. Ears: Pinnas intact and no signs of trauma or erythema ear canals clear and no discharge TM no erythema Nose: No discharge, no bleeding. Oropharynx: Mouth normal, tongue pink, pharynx clear,no erythema, tonsils no exudates, no abscesses noted, mucous membrane moist Neck: Supple, non-tender, no thyromegaly, no masses, no JVD, no bruits Breast:Deferred Chest:No tenderness, no crepitus, no paradoxical movement, no retractions Lungs:Clear, well-ventilated, symmetric, no rales, no wheezing, no rhonchi, no stridor, good breath sounds bilaterally Heart: Regular rate, regular rhythm, no murmur, no gallops Vascular: no peripheral edema, Abdomen: Soft, positive bowel sounds, nondistended, no guarding, nontender, no rebound, no masses no hepatomegaly, no splenomegaly, no Cruz's sign, no hernias. Rectal: Deferred Genital: Deferred Neurological: Normal speech, motor function intact, sensory function intact Musculoskeletal: Neck nontender, full range of motion, back nontender, full range of motion, Extremities: Bilateral anterior knee tenderness. No patella displacement no shortening or rotation of leg and no hip or pelvic pain. Skin intact Skin: Color pink, dry, no turgor, no rash, no lacerations, no abrasions, no contusions. Lymphatic: Deferred Results (Laboratory/Radiology) Laboratory/Radiology 1600/BILATERAL KNEE X-RAYS NEGATIVE Labs Reviewed?: Yes ED Course ED Course Orders Procedure Category Date Status Time Knee 3vws Lt RAD 10/21/24 Taken 15:15 Knee 3vws Rt RAD 10/21/24 Taken 15:15 Vital Signs Date Time Temp Pulse Resp B/P (MAP) Pulse Ox O2 Delivery O2 Flow Rate FiO2 10/21/24 15:13 98.6 87 20 165/73 98 Room Air* 0 21 10/21/24 15:03 98.6 89 20 165/73 98 Room Air Medical Decision Making MDM MEDICAL DECISION-MAKING BASED ON EMPIRIC PANEL JUDGMENT FOR KNEE PAIN BILATERAL KNEE X-RAYS DONE X-RAYS NEGATIVE EXCEPT FOR CHRONIC DEGENERATIVE CHANGE PATIENT DISCHARGED HOME TO FOLLOW UP WITH HER PRIMARY CARE DOCTOR 1-2 DAYS AND GIVEN RICE INSTRUCTIONS DX & DISP Disposition: Discharge Departure Impression: Primary Impression: Contusion of left knee, initial encounter Additional Impressions: Contusion of right knee, initial encounter, Fall Condition: Stable Referrals: RENE CORRIGAN DO (PCP) Time of Disposition: 16:12 I have reviewed the case, and I agree with, Diagnosis and Plan HANNA BARBA SALES CONTRACT ADMINISTRATOR Oct 21, 2024 15:20
[2024-10-21 16:16] VITALS: BP 147/68; PULSE 74; RESP 20; TEMP 98.6; O2SAT 98
== END 2024-10-21 16:23 | disposition home or self-care (01) ==
LOC: EDH 14:48
DX: S80.01XA Contusion of right knee, initial encounter (principal); S80.02XA Contusion of left knee, initial encounter; E03.9 Hypothyroidism, unspecified; E11.9 Type 2 diabetes mellitus without complications; I10 Essential (primary) hypertension; M19.90 Unspecified osteoarthritis, unspecified site; Z79.4 Long term (current) use of insulin; Z79.51 Long term (current) use of inhaled steroids; Z79.52 Long term (current) use of systemic steroids; Z79.624 Long term (current) use of inhibitors of nucleotide synthesis; Z79.84 Long term (current) use of oral hypoglycemic drugs; Z79.899 Other long term (current) drug therapy; Z87.19 Personal history of other diseases of the digestive system; Z88.1 Allergy status to other antibiotic agents; Z88.2 Allergy status to sulfonamides; Z88.5 Allergy status to narcotic agent; Z90.49 Acquired absence of other specified parts of digestive tract; W01.0XXA Fall on same level from slipping, tripping and stumbling without subsequent striking against object, initial encounter; Y93.89 Activity, other specified; Y92.89 Other specified places as the place of occurrence of the external cause; Y99.8 Other external cause status
CPT/HCPCS: 73562; 99283